=== PATIENT | female | born 1945 | race Caucasian/White ===

== ENCOUNTER 2018-02-05 14:00 | Outpatient (RCR) | payer OTHER, MEDICARE, SELFPAY ==
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
--- NOTE | 2018-02-05 14:30 | HP.PTDCSUM_ITS ---
HP - PT D/C Summary It has been my pleasure to treat RAN GIRARD under orders from Alan Lassiter, for the diagnosis of CHRONIC MIDLINE LOW BACK PAIN for a total of 10 visit (s). Discharge Date: Please see the following information for a summary of their discharge status. - Subjective Subjective: PATIENT REPORTS SHE ISN'T HAVING ANY PAIN RIGHT NOW BUT SHE HAD TO PUT HEAT ON HER RIGHT BACK/RIB CAGE AREA. SHE REPORTS THAT OVER-ALL SHE REALLY ISN'T ANY BETTER OR ANY WORSE SINCE STARTING PT. SHE REPORTS THAT SHE STILL DOES THE EX'S WE GAVE HER FOR HOME THOUGH. PATIENT REPORTS SHE PLANS TO GO TO THE DOCTOR TODAY AND ASK FOR AN X-RAY. PATIENT REPORTS THE THERAPY HAS NOT MADE HER WORSE BUT IT ISN'T HELPING. - Pain R MID-BACK Pain Intensity (Out of 10): 0 - Objective Objective/Function: PATIENT IS NOT IMPROVING. THERE IS NO SIGNIFICANT CHANGE IN SX'S SINCE INITIAL EVALUATION. - Goals Goal 1:: DECREASE C/O RIGHT BACK AND RIB PAIN Goal Progress: Not Progressing Goal 2:: IMPROVE PERSONAL CARE, LIFTING, BENDING, TWISTING, STANDING, WALKING, SITTING, RISING FROM SITTING, SLEEP, REACREATIONAL AND HOMEMAKING FUNCTION Goal Progress: Not Progressing Goal 3:: INSTRUCT IN PROPHYLAXIS Goal Progress: Not Progressing - Plan Plan: D/C DUE TO LACK OF PROGRESS. PATIENT AGREEABLE. - D/C Information If there are questions or concerns regarding this patient's physical therapy, please feel free to call me at [phone]. Thank you for the referral of this patient. Sincerely, Emilia Ku
== END 2018-02-05 15:41 | disposition home or self-care (01) ==
LOC: PT 14:00
PROVIDERS: Family Provider Family Medicine; PCP Family Medicine; Visit Provider Family Medicine
DX: M54.5 Low back pain (principal)
CPT/HCPCS: 97110; 97162; 97164; 97530; G8978

== ENCOUNTER 2018-03-08 11:03 | Emergency (ER) | payer OTHER, MEDICARE, SELFPAY ==
[2018-03-08 11:04] VITALS: BP 125/84; PULSE 63; RESP 22; TEMP 36.6; O2SAT 95; BMI 30.7
[2018-03-08] MEDS: predniSONE 20 MG Tablet 60 MG PO (11:24)
[2018-03-08 11:35] VITALS: PULSE 71; RESP 22; O2SAT 93
[2018-03-08] MEDS: Albuterol 2.5 MG/3 ML VIAL.NEB. INHALATION ×3 (11:35→11:50)
[2018-03-08] MEDS: Ipratropium/Albuterol Sulfate 3 ML AMPUL.NEB INHALATION (11:35)
[2018-03-08 11:50] VITALS: PULSE 75; RESP 22; O2SAT 95
--- NOTE | 2018-03-08 12:21 | ED.VISSUMM ---
- ER Visit Summary Date of Service: 03/08/18 Chief Complaint: Shortness of breath, nonproductive cough and wheezing History of Present Illness: The patient is a 72 F with history of COPD and recent admission to [facility] presents with nonproductive cough, shortness of breath and wheezing. She completed her short burst of prednisone. She denies fever, chills night sweats. She denies rhinorrhea, postnasal drainage or nasal congestion. Denies earache or sore throat. She denies any chest pain. She has no history of PE or DVT. She denies any leg pain, swelling or discoloration. She denies nausea, vomiting diarrhea. Physical Examination: Vital signs were noted and blood pressure is elevated 125/84 and rest rate is 22. She is not febrile nor she hypoxic. Audible wheezing noted. Head is atraumatic normocephalic. Pupils are equal round reactive. Extraocular muscles are intact. TMs are pearly white with landmarks noted. Nares patent with no drainage. Posterior pharynx without erythema or exudate. Uvula is midline. There is no dysphonia or dysphasia. Trachea is midline. There is no stridor with auscultation of the neck. Heart is regular without murmur, gallop or rub. Lungs reveal wheezing bilaterally with increased x-ray phase. There is no rales or rhonchi noted. There is no egophony or increased vocal fremitus. Abdomen is soft nontender. There is no asymmetry, swelling, discoloration, leg vein distention, palpable cords or tenderness along the distribution of the deep venous system. Neuro exam is nonfocal Test Results: Two-view chest x-ray was obtained and reveals minimal chronic changes with no evidence of infiltrate or effusion. Cardiac silhouette is normal. Lung parenchyma is normal. Emergency Department Course and Treatment: Will obtain chest x-ray to evaluate for pneumothorax and pneumonia. She received 60 mg of prednisone as well as DuoNeb and albuterol treatments. I was informed by respiratory therapist she still has wheezing. However, she is moving more air. Treatment Plan: Patient was reassessed at 1225. There is no audible wheezing. There is expiratory wheezing with forced expiration only. Will discharge with tapering dose of prednisone and follow-up with Dr. Vázquez in 1 week Disposition: Discharged home in stable condition. Impression: Acute exacerbation of COPD with bronchospasm This note was generated with Analiza dictation software. It may contain incorrect words, spelling, and punctuation that were not noted in review of the chart prior to signing ED Disposition - Plan for ED Patient: Disposition: Home or Assisted Living Chief Complaint: Shortness of Breath Instructions: ED COPD Flare Prescriptions: Prednisone 10 mg PO UD #33 tab Referrals: Alan Lassiter MD [Primary Care Provider] - 3-5 Days if not improving
[2018-03-08 12:57] VITALS: PULSE 73; RESP 18; O2SAT 92
[2018-03-08] MEDS: Ondansetron ODT 4 MG Tablet PO (12:59)
== END 2018-03-08 13:00 | disposition home or self-care (01) ==
LOC: ED 12:42
PROVIDERS: Emergency Provider Emergency Medicine; Family Provider Family Medicine; PCP Family Medicine
DX: J44.1 Chronic obstructive pulmonary disease with (acute) exacerbation (principal); I10 Essential (primary) hypertension; Z79.899 Other long term (current) drug therapy; Z79.82 Long term (current) use of aspirin; Z79.51 Long term (current) use of inhaled steroids
CPT/HCPCS: 71046; 94640; 99283

== ENCOUNTER 2018-04-03 15:18 | Emergency (ER) | payer OTHER, MEDICARE, SELFPAY ==
[2018-04-03 15:18] VITALS: BP 155/97; PULSE 58; RESP 22; TEMP 36.6; O2SAT 99; BMI 30.7
[2018-04-03 16:22] VITALS: O2SAT 96
--- NOTE | 2018-04-03 16:43 | EKG12_ITS ---
Test Reason : SOB Blood Pressure : / mmHG Vent. Rate : 049 BPM Atrial Rate : 049 BPM P-R Int : 146 ms QRS Dur : 094 ms QT Int : 500 ms P-R-T Axes : 017 -17 037 degrees QTc Int : 451 ms Sinus bradycardia with sinus arrhythmia Nonspecific ST and T wave abnormality Abnormal ECG Confirmed by TIN NGUYEN, JUDSON ([id number]), department editor MATHEW JAQUEZ ([id number]) on 04/07/2018 8:54:08 AM Referred By: KELLEE Confirmed By:JUDSON CASTLE MD
--- NOTE | 2018-04-03 16:45 | RAD_ITS ---
STUDY: X-RAY CHEST REASON FOR EXAM: Female, 73 years old. Shortness of breath for 2 to 3 days. History of COPD. TECHNIQUE: Single frontal view of the chest. COMPARISON: March 08, 2018 FINDINGS: There is stable hyperexpansion. There is no demonstrated pleural abnormality. There is borderline cardiomegaly unchanged. Normal mediastinum and cathy. Normal visualized pulmonary arteries. Normal visualized aortic arch and descending thoracic aorta. Normal visualized thoracic spine. Normal visualized ribs, clavicles, and shoulders. There is no demonstrated abnormality of the visualized soft tissue structures of the upper abdomen. RAD/Chest 1 View (Portable) IMPRESSION: Borderline cardiomegaly with hyperexpansion. No acute pathology. Electronically Signed: Tyrese Vela MD at 17:40 EDT , Service support ,
[2018-04-03 16:57] VITALS: PULSE 54; RESP 22
[2018-04-03] MEDS: Ipratropium/Albuterol Sulfate 3 ML AMPUL.NEB INHALATION (16:57)
[2018-04-03] MEDS: MethylPREDNISolone 125 MG/2 ML Vial IV (16:57)
[2018-04-03] MEDS: Albuterol 2.5 MG/3 ML VIAL.NEB. INHALATION (16:57)
[2018-04-03 17:04] LABS: Absolute Lymphocyte Count 12.16 X10^3/ul (0.83-4.51); Basophil# 0.05 X10^3/uL; Basophil% 0.3 % (0-1); Differential Indicated SCAN CRITERIA MET; Eosinophil# 0.35 X10^3/uL; Eosinophils% 1.9 % (0-5); Hemoglobin 12.4 g/dl (12.0-15.0); Lymphocyte # 12.16 X10^3/ul (4.0); Lymphocyte % 67.3 % (19-41); Mean Corpuscular Hgb 27.2 pg (27.0-32.0); Mean Corpuscular Volume 87.7 fL (81-99); Mean Platelet Vol. 10.3 fl (6.2-12.0); Monocyte# 0.44 X10^3/uL; Monocyte% 2.4 % (0-10); Neutrophil # 5.03 X10^3/uL (2.7-7.7); Neutrophil % 27.9 % (47-70); POSITIVE COUNT NO; POSITIVE DIFFERENTIAL YES; POSITIVE MORPHOLOGY YES; Platelet Count 144 K/mm3 (150-450); RBC Distribution Width CV 15.4 % (11.6-14.6); RBC Distribution Width SD 49.1 fl (35.1-43.9); Red Blood Count 4.56 M/mm3 (4.2-5.4); White Blood Count 18.1 K/mm3 (4.4-11.0)
[2018-04-03 17:20] LABS: Anion Gap 8 (5-15); BUN 17 mg/dL (7-18); BUN/Creat Ratio 23.7 RATIO (10-20); Calcium,Total 9.1 mg/dL (8.5-10.1); Chloride 109 mmol/L (98-107); Creatinine, Serum 0.72 mg/dL (0.55-1.02); EST Glomerular Filtration Rate 85 mL/min (>60); Est Glom Filt Rate - Afr Amer 102 mL/min (>60); Estimated Creatinine Clearance 45.09 ml/min; Glucose 93 mg/dL (74-106); Potassium 3.8 mmol/L (3.5-5.1); Sodium Level 142 mmol/L (136-145)
[2018-04-03 17:32] LABS: Platelet Estimate ADEQUATE (ADEQ); Red Cell Morphology NORM C+C NORMAL (NORM C&C)
--- NOTE | 2018-04-03 19:41 | ED.VISSUMM ---
- ER Visit Summary Date of Service: 04/03/18 Chief Complaint: Dyspnea History of Present Illness: The patient is a 73 F with 3 day history of gradual onset shortness of breath cough with white sputum. She has a history of COPD. She has no fever or chills. She has no chest pain. Last time she was on steroids for COPD was a month and a half ago. Physical Examination: Not appear in acute distress. Speaking in full sentences. Moist mucous membranes, no obvious facial deformity No C-spine tenderness supple neck. Regular rate and rhythm without any obvious murmurs Wheezy lungs bilaterally speaking in full sentences without any obvious respiratory distress Abdomen soft and nontender no guarding or rebound Moves all extremities without any difficulty or pain. Skin does not show any obvious rashes or lesions, no trauma. Alert oriented ?3 with no gross focal deficit Test Results: X-rays unremarkable patient does have leukocytosis, this makes me concerned for an underlying pneumonia therefore I will start the patient on antibiotics. She will get steroids, at this time she is not hypoxic she appears well she is talking in full sentences I do believe she meets criteria for outpatient treatment, however if she gets worse she needs to return both her and her are in the room and understand this. Discharge stable condition Impression: [COPD exacerbation] This note was generated with Synd[employer] dictation software. It may contain incorrect words, spelling, and punctuation that were not noted in review of the chart prior to signing ED Disposition - Plan for ED Patient: Disposition: Home or Assisted Living Chief Complaint: Shortness of Breath Instructions: ED COPD Flare Prescriptions: levoFLOXacin tablet [Levaquin tablet] 750 mg PO DAILY #5 tab Referrals: Alan Lassiter MD [Primary Care Provider] - 3-5 Days
[2018-04-03] MEDS: levoFLOXacin 750 MG Tablet PO (19:51)
[2018-04-03] MEDS: Triamcinolone Acetonide 40 MG/ML Vial IM (19:57)
[2018-04-03 20:00] VITALS: PULSE 61; RESP 19; O2SAT 95
[2018-04-05 12:45] LABS: Pathologist Review Reviewed
== END 2018-04-03 20:01 | disposition home or self-care (01) ==
PROVIDERS: Emergency Provider Emergency Medicine; Family Provider Family Medicine; PCP Family Medicine
DX: J44.1 Chronic obstructive pulmonary disease with (acute) exacerbation (principal); D72.829 Elevated white blood cell count, unspecified; I10 Essential (primary) hypertension; Z79.82 Long term (current) use of aspirin; Z79.899 Other long term (current) drug therapy; Z72.0 Tobacco use
CPT/HCPCS: 71045; 80048; 84484; 85025; 93005; 94640; 96372; 96374; 99285; A4216

== ENCOUNTER 2019-01-27 13:23 | Observation (INO) | payer OTHER, MEDICARE, SELFPAY ==
[2019-01-27] VITALS (8 sets, daily range): BP systolic 130–170; BP diastolic 67–97; PULSE 49–59; RESP 14–21; TEMP 36.4–36.8; O2SAT 95–97; BMI 30.7; BMI 30.8; BMI 31.6
--- NOTE | 2019-01-27 13:28 | RAD_ITS ---
STUDY: X-RAY CHEST REASON FOR EXAM: Female, 73 years old. One week history of chest pain. TECHNIQUE: Single AP portable view of the chest. COMPARISON: Comparison is made with prior study dated April 03, 2018. FINDINGS: The lungs are clear and expanded. There is no demonstrated pleural abnormality. There is mild cardiac enlargement. Normal mediastinum and cathy. Normal visualized pulmonary arteries. There is atherosclerotic calcification of the aortic arch with tortuosity. Normal visualized thoracic spine. Normal visualized ribs, clavicles, and shoulders. There is no demonstrated abnormality of the visualized soft tissue structures of the upper abdomen. RAD/Chest 1 View (Portable) IMPRESSION: Mild cardiomegaly. No acute abnormality is seen. Electronically Signed: Artie Roberts, at 13:51 EDT , Service support ,
--- NOTE | 2019-01-27 13:28 | EKG12_ITS ---
Test Reason : CP Blood Pressure : / mmHG Vent. Rate : 055 BPM Atrial Rate : 055 BPM P-R Int : 176 ms QRS Dur : 092 ms QT Int : 476 ms P-R-T Axes : 031 -17 051 degrees QTc Int : 455 ms Sinus bradycardia Otherwise normal ECG Confirmed by TIN NGUYEN, JUDSON ([id number]), greeting card editor LUIS GUPTA ([id number]) on 01/31/2019 12:54:14 PM Referred By: Darrell Lerner Confirmed By:JUDSON CASTLE MD
[2019-01-27 13:43] LABS: Absolute Lymphocyte Count 8.52 X10^3/uL (0.83-4.51); Basophil# 0.06 X10^3/uL; Basophil% 0.4 % (0-1); Eosinophil# 0.18 X10^3/uL; Eosinophils% 1.3 % (0-5); Hematocrit 40.1 % (37-47); Hemoglobin 12.5 g/dL (12.0-15.0); Lymphocyte # 8.52 X10^3/ul (4.0); Lymphocyte % 63.1 % (19-41); Mean Corp Hgb Conc 31.2 g/dL (32-36); Mean Corpuscular Hgb 26.8 pg (27.0-32.0); Mean Corpuscular Volume 86.1 fL (81-99); Mean Platelet Vol. 11.1 fl (6.2-12.0); Monocyte# 1.18 X10^3/uL; Monocyte% 8.7 % (0-10); NRBC Flagged by Analyzer 0 % (0-5); Neutrophil # 3.54 X10^3/uL (2.7-7.7); Neutrophil % 26.3 % (47-70); POSITIVE DIFFERENTIAL YES; POSITIVE MORPHOLOGY YES; Platelet Count 119 K/mm3 (150-450); RBC Distribution Width CV 15.3 % (11.6-14.6); RBC Distribution Width SD 48.1 fl (35.1-43.9); Red Blood Count 4.66 M/mm3 (4.2-5.4); White Blood Count 13.5 K/mm3 (4.4-11.0)
[2019-01-27] MEDS: Aspirin 81 MG TAB.CHEW 324 MG PO (13:47)
[2019-01-27 13:51] LABS: Differential Indicated SCAN CRITERIA MET
[2019-01-27 14:01] LABS: Anion Gap 9 (5-15); BUN 15 mg/dL (7-18); BUN/Creat Ratio 17.3 RATIO (10-20); Calcium,Total 9.5 mg/dL (8.5-10.1); Chloride 110 mmol/L (98-107); Creatinine, Serum 0.86 mg/dL (0.55-1.02); EST Glomerular Filtration Rate 68 mL/min (>60); Est Glom Filt Rate - Afr Amer 82 mL/min (>60); Estimated Creatinine Clearance 52.42 ml/min; Glucose 134 mg/dL (74-106); Potassium 3.9 mmol/L (3.5-5.1); Sodium Level 146 mmol/L (136-145)
[2019-01-27 14:24] LABS: Differential Comment SCANNED; Platelet Estimate MOD DEC (ADEQ); Smudge Cells RARE
--- NOTE | 2019-01-27 15:19 | ED.VISSUMM ---
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 She reports that she has intermittent chest pain for the past week. This is a pressure that radiates up into the right side of her jaw. She reports that it is brought on by exertion, but only lasts seconds and is relieved by rest. Her pain is 4 out of 10 at worst and she is pain-free currently. She does report that she is diaphoretic and short of breath and with this. Patient does report recent travel. They drove to [place] approximately 1 week ago. However, she reports they stopped approximately every 2 hours. She has no personal family history of DVT. She denies ankle swelling or calf pain. Patient has a family history, high blood pressure, high cholesterol, and diabetes as her risk factors. She has never had a heart catheterization. She had a stress test a long time ago. Physical Examination: Vitals: Stable. Afebrile. General: Well-nourished and well-developed. Head: Normocephalic atraumatic. Neck: Supple, no lymphadenopathy. No JVD. Nontender. Cardiovascular: Regular rate and rhythm. No murmurs. Respiratory: No respiratory distress. Clear to auscultation bilaterally. Abdominal: Soft, nontender, nondistended, normal bowel sounds. No guarding, rebound, or peritoneal signs. Back: Nontender. Extremities: Nontender, no edema. Skin: Normal color, no rash. Neurologic: Alert and oriented ?3. Cranial nerves II through XII are intact. Normal strength and sensation. Psych: Normal affect. Test Results: EKG sinus bradycardia [address] changes. Troponin is negative. Chem-7 shows a sodium 146, chloride 110, glucose 134. CBC shows white count 13.5, platelets 119, 7 neutrophils 26, lymphs at the 63. Chest x-ray shows mild cardiomegaly and no acute disease. Emergency Department Course and Treatment: Patient was treated with aspirin. She is remained pain-free while here. Treatment Plan: The patient was discussed with Dr. Lerner. She will be admitted to the hospital for further evaluation and treatment. Disposition: Admitted in stable condition. Impression: 1. Chest pain. 2. CARLOS A score 3. This note was generated with Engage Mob[employer] software. It may contain incorrect words, spelling, and punctuation that were not noted in review of the chart prior to signing ED Disposition - Plan for ED Patient: Referrals: Alan Lassiter MD [Primary Care Provider] -
--- NOTE | 2019-01-27 16:06 | NURSING ---
PCU OBS JAKE CONCEPC[facility]
--- NOTE | 2019-01-27 16:38 | PCM.HP.STD ---
Problem List (1) Atypical chest pain Status: Acute (2) COPD (chronic obstructive pulmonary disease) Status: Chronic (3) Pneumonia Status: Resolved (4) SOB (shortness of breath) Status: Acute (5) HLD (hyperlipidemia) Status: Chronic (6) HTN (hypertension) Status: Chronic History of Present Illness Date of Admission: 01/27/19 Chief Complaint: Chest pain for 1 week The patient is a 73 year old F with history of hypertension, dyslipidemia came to ER for chest pain on and off for 1 week. She gets chest pain on exertion and relieved with rest but also has even at rest. Sometimes, it radiates to right neck. She does not have associated shortness of breath with chest pain, dizziness, sweating although she has mild chronic shortness of breath secondary to COPD. In ED, EKG shows sinus bradycardia at 55 bpm. She denies history of coronary artery disease but never had heart cath. She had a stress as long time ago. [] Past Medical History Past Medical History (Chronic Problems): Chronic Problems HTN (hypertension) (Chronic) COPD (chronic obstructive pulmonary disease) (Chronic) HLD (hyperlipidemia) (Chronic) Allergies No Known Allergies Allergy (Verified 01/27/19 13:27) Home Medications: Ambulatory Orders Medication Instructions Recorded Aspirin [Aspirin, Baby] 81 mg PO DAILY@0800 07/15/15 Gabapentin [Neurontin] 300 mg PO BID 07/15/15 Omeprazole [Prilosec] 20 mg PO DAILY PRN PRN 07/15/15 Polyethylene Glycol 3350 [Miralax] 17 gm PO DAILY 07/15/15 traZODone [Desyrel] 50 mg PO QHS 07/15/15 Acetaminophen [Tylenol Extra 1,000 mg PO DAILY PRN PRN 01/27/19 Strength] Budesonide/Formoterol 160/4.5 2 puff INHALATION DAILY PRN PRN 01/27/19 [Symbicort 160/4.5 Mcg Inhaler (SP)] Metoprolol Succinate [Toprol Xl] 100 mg PO DAILY 01/27/19 Tiotropium [place] [Spiriva 2 puff INHALATION DAILY 01/27/19 Respimat] Surgical History: appendectomy, hysterectomy, - Smoking Status: Never smoker - *Family History Paternal History Items: Heart Disease - Heart disease diagnosed in late 70s., - - unspecified heart problems, diabetes in father Review of Systems Constitutional: Denies: Chills, Fever, Weight Change HEENT: Denies: Head Aches, Sinus Congestion, Sinus Drainage Cardiovascular: Reports: Chest Pain. Denies: Palpitations Respiratory: Reports: Shortness of Breath. Denies: Cough, Shortness of breath at rest, Sputum production Gastrointestinal: Denies: Abdominal Pain, Nausea, Vomiting Genitourinary: Denies: Dysuria Musculoskeletal: Reports: Joint Pain. Denies: Joint Tenderness Skin: Denies: Rash, Wounds Neurological: Denies: Numbness, Tingling, Focal weakness Psychiatric: Denies: Anxiety, Depression, Homicidal Ideations, Suicidal Ideations Hematologic/ Lymphatic: Denies: Easy Bruising, Easy Bleeding VTE Information - Inpt Only VTE Present on Admission: No VTE Mechan Device Prophylaxis: None VTE Pharm Prophylaxis ordered?: Yes Patient Problems: Active and Suspected Problems Atypical chest pain (Acute) - Physical Exam General: Alert, Oriented x3, Cooperative HEENT: Atraumatic, PERRLA, EOMI, Normocephalic Neck: Supple, No JVD, Negative Carotid Bruits Lungs: Clear to auscultation, Normal air movement, No rhonchi, No wheeze, No rales Cardiovascular: Regular Rhythm, Normal S1, Normal S2, No murmurs, Bradycardic Abdomen: Bowel Sounds Present, Soft, Non Tender, Non-Distended Extremities: Capillary Refill Less than 3 Seconds, Edema - Mild ankle edema Skin: No rashes, No breakdown Musculoskeletal: No Tenderness to Palpation of Joints or Extremities, Arthritic Changes Neurological: Cranial nerves II-XII grossly intact, Deep Tendon Reflexes 2+/4 and Symmetrical, Neuro grossly intact, Motor Exam 5/5 strength throughout Psych/Mental Status: Normal Affect, Appropriate Vital Signs Temp Pulse Resp BP Pulse Ox 97.6 F L 55 L 21 H 157/67 H 96 01/27/19 13:24 01/27/19 16:33 01/27/19 16:33 01/27/19 16:33 01/27/19 16:33 Oxygen Flow Rate (L/min) 2 Oxygen Delivery Method Room Air Weight: 185 lb Body Mass Index (BMI) 30.7 Finger Stick Blood Glucose 128 Laboratory Tests Past 24 Hrs 01/27/19 01/27/19 13:30 13:30 WBC 13.5 H RBC 4.66 Hgb 12.5 Hct 40.1 MCV 86.1 MCH 26.8 L MCHC 31.2 L RDW Std Deviation 48.1 H RDW Coeff of Ana 15.3 H Plt Count 119 L MPV 11.1 Immature Gran % (Auto) 0.200 Neut % (Auto) 26.3 L Lymph % (Auto) 63.1 H [place] % (Auto) 8.7 Eos % (Auto) 1.3 Baso % (Auto) 0.4 Absolute Neuts (auto) Not Reportable Absolute Lymphs (auto) 8.52 H Absolute Nucleated RBC 0.00 Nucleated RBC % 0 Differential Comment SCANNED Diff Path Review May foll Smudge Cells RARE Platelet Estimate MOD DEC Sodium 146 H Potassium 3.9 Chloride 110 H Carbon Dioxide 27.0 Anion Gap 9 BUN 15 Creatinine 0.86 Estim Creat Clear Calc 52.42 Est GFR (MDRD) Af Amer 82 Est GFR (MDRD) Non-Af 68 BUN/Creatinine Ratio 17.3 Glucose 134 H Calcium 9.5 Troponin I < 0.015 Assessment/Plan All Active Problems Atypical chest pain (Acute) SOB (shortness of breath) (Acute) Pneumonia (Resolved) The patient is a 73 year old F with history of hypertension, dyslipidemia came to ER for chest pain on and off for 1 week. She gets chest pain on exertion and relieved with rest but also has even at rest. Sometimes, it radiates to right neck. She does not have associated shortness of breath with chest pain, dizziness, sweating although she has mild chronic shortness of breath secondary to COPD. In ED, EKG shows sinus bradycardia at 55 bpm. There is nonspecific ST-T changes suggestive of ischemia. She denies history of coronary artery disease but never had heart cath. She had a stress as long time ago. [] 1. Chest pain with possibility of unstable angina: The patient is being admitted in PCU. Serial troponin enzymes. Patient is okay with treadmill nuclear stress test tomorrow morning if troponin enzymes are negative. CARLOS A risk score; 4/7. 2. Hypertension: Blood pressure is slightly elevated 157/67. Started on lisinopril 5 mg daily. 3. Elevated blood sugar: Blood sugar is 134 in BMP. A1c ordered for tomorrow a.m. Patient denies history of diabetes mellitus. 4. Other comorbidities include dyslipidemia, COPD: Fasting lipid profile ordered for tomorrow a.m. Continue home inhalers for COPD. COPD stable; no exacerbation. DVT prophylaxis: On Lovenox 40 mg subcut daily. This note was generated with [employer] dictation software. Every effort was made to ensure accuracy, however computerized electronic prepress operator mistakes may persist. Laboratory Results 01/27/19 13:30: WBC 13.5 H, RBC 4.66, Hgb 12.5, Hct 40.1, MCV 86.1, MCH 26.8 L, MCHC 31.2 L, RDW Std Deviation 48.1 H, RDW Coeff of Ana 15.3 H, Plt Count 119 L, MPV 11.1, Immature Gran % (Auto) 0.200, Neut % (Auto) 26.3 L, Lymph % (Auto) 63.1 H, [place] % (Auto) 8.7, Eos % (Auto) 1.3, Baso % (Auto) 0.4, Absolute Neuts (auto) Not Reportable, Absolute Lymphs (auto) 8.52 H, Absolute Nucleated RBC 0.00, Nucleated RBC % 0, Differential Comment SCANNED, Diff Path Review May foll, Smudge Cells RARE, Platelet Estimate MOD DEC 01/27/19 13:30: Sodium 146 H, Potassium 3.9, Chloride 110 H, Carbon Dioxide 27.0, Anion Gap 9, BUN 15, Creatinine 0.86, Estim Creat Clear Calc 52.42, Est GFR (MDRD) Af Amer 82, Est GFR (MDRD) Non-Af 68, BUN/Creatinine Ratio 17.3, Glucose 134 H, Calcium 9.5, Troponin I < 0.015 Clinical Impression(s) from Imaging Studies Chest X-Ray 01/27/19 13:28 IMPRESSION: Mild cardiomegaly. No acute abnormality is seen. Code Visit OBSV E&M: 63106 Initial observation care L3
--- NOTE | 2019-01-27 16:40 | EKG12_ITS ---
Test Reason : ADMISSION EKG Blood Pressure : / mmHG Vent. Rate : 049 BPM Atrial Rate : 049 BPM P-R Int : 160 ms QRS Dur : 090 ms QT Int : 484 ms P-R-T Axes : 034 -08 046 degrees QTc Int : 437 ms Sinus bradycardia Otherwise normal ECG When compared with ECG of 03-APR-2018 17:14, No significant change was found Confirmed by TIN NGUYEN, JUDSON ([id number]), editor greeting card LUIS GUPTA ([id number]) on 02/01/2019 2:01:32 PM Referred By: Darrell Lerner Confirmed By:JUDSON CASTLE MD
[2019-01-27] MEDS: Lisinopril 5 MG Tablet PO (17:34)
[2019-01-27] MEDS: Enoxaparin 40 MG/0.4 ML Syringe SC (17:34)
[2019-01-27] MEDS: Pantoprazole Sodium 20 MG Tablet PO (20:52)
[2019-01-27] MEDS: Atorvastatin Calcium 40 MG Tablet PO (21:45)
[2019-01-27] MEDS: traZODone 50 MG Tablet PO (21:45)
[2019-01-28] VITALS (8 sets, daily range): BP systolic 97–125; BP diastolic 49–70; PULSE 47–73; RESP 16–26; TEMP 36.4–36.7; O2SAT 93–97
[2019-01-28] MEDS: Aspirin 81 MG TAB.CHEW PO (05:11)
[2019-01-28] MEDS: Gabapentin 300 MG Capsule PO (05:12)
[2019-01-28 05:15] LABS: Hematocrit 36.5 % (37-47); Hemoglobin 11.3 g/dL (12.0-15.0); Mean Corpuscular Hgb 26.7 pg (27.0-32.0); Mean Corpuscular Volume 86.3 fL (81-99); Platelet Count 106 K/mm3 (150-450); Red Blood Count 4.23 M/mm3 (4.2-5.4); White Blood Count 10.5 K/mm3 (4.4-11.0)
[2019-01-28 05:39] LABS: Cholesterol 131 mg/dL (200); High Density Lipoprotein 30 mg/dL; Thyroid Stim Hormone (TSH) 1.64 uIU/mL (0.358-3.74); Triglycerides 326 mg/dL; Very Low Density Lipoprotein 65 mg/dL (5-40)
--- NOTE | 2019-01-28 05:55 | EKG12_ITS ---
Test Reason : AM EKG Blood Pressure : / mmHG Vent. Rate : 048 BPM Atrial Rate : 048 BPM P-R Int : 160 ms QRS Dur : 080 ms QT Int : 504 ms P-R-T Axes : 017 -11 035 degrees QTc Int : 450 ms Sinus bradycardia Otherwise normal ECG When compared with ECG of 27-JAN-2019 17:05, MANUAL COMPARISON REQUIRED, DATA IS UNCONFIRMED Confirmed by TIN NGUYEN, JUDSON ([id number]), editor sound LUIS GUPTA ([id number]) on 02/01/2019 2:00:57 PM Referred By: Darrell Lerner Confirmed By:JUDSON CASTLE MD
[2019-01-28 07:09] LABS: Hemoglobin A1c 6.3 % (4.2-6.3)
[2019-01-28] MEDS: Ipratropium/Albuterol Sulfate 3 ML AMPUL.NEB INHALATION ×2 (07:52→12:45)
[2019-01-28 09:39] LABS: Pathologist Review Reviewed
[2019-01-28] MEDS: Lisinopril 5 MG Tablet PO (09:45)
[2019-01-28] MEDS: Metoprolol(XL)Succ 50 MG Tablet PO (09:45)
[2019-01-28] MEDS: Polyethylene Glycol 3350 17 GM PACKET PO (09:45)
--- NOTE | 2019-01-28 11:33 | STRESSREP ---
Stress Test Report Pharmacologic myocardial perfusion stress test. 73-year-old lady with a history of chest pain. Next Stress protocol: Resting EKG demonstrates normal sinus rhythm with a rate of 51 bpm normal intervals are noted resting blood pressure 160/80 mmHg. The patient exercised according to regular [place] protocol for total duration of 4 minutes and 48 seconds maximum heart rate attained 114 bpm which was 77% maximum predicted heart rate the maximum workload was 6.7 metabolic equivalents. The patient failed to obtain maximum heart rate and therefore the test was changed to a pharmacologic myocardial perfusion stress test. Nonspecific ST-T wave changes were noted at rest and with peak infusion. The resting blood pressures 150/80 with a final blood pressure 132/70 mmHg Myocardial perfusion protocol. 1.9 mCi of technetium 99m sestamibi was injected at rest. 0.4 mg of regadenoson was infused per usual protocol peak infusion 33.6 mCi of technetium 99m sestamibi was injected stress images were obtained stress and rest images are reconstructed in comparing the short axis vertical and horizontal long axis. Gated images was obtained PACS Perfusion SPECT analysis: Review of the stress images demonstrate significant GI attenuation artifact. The septum anterior wall lateral wall however appeared to be normally perfused. The inferior wall has reduced perfusion on the stress and resting images no obvious reversibility is noted to suggest ischemia. The attenuation corrected images demonstrate normal perfusion. Gated SPECT analysis: The gated ejection fraction is noted to be 74%. Conclusion: Probably normal pharmacologic myocardial perfusion stress test. Preserved ejection fraction.
--- NOTE | 2019-01-28 11:46 | DCINST_ITS ---
- Discharge Diagnoses Current Active Problems: Current Active and Chronic Problems Atypical chest pain (Acute) You will use the following diet at home:: Cardiac Discharge Activity: Return to Normal Activity Call your doctor if you observe: Shortness of breath, Dizziness, Fainting spells, Chest pain Instructions: Eating Heart-Healthy Foods, Eating Heart-Healthy Food: Using the DASH Plan Allergies/Adverse Reactions: Allergies No Known Allergies Allergy (Verified 01/27/19 13:27) Medications to take at Discharge Aspirin [Aspirin, Baby] 81 mg PO DAILY@0800 07/15/15 Gabapentin [Neurontin] 300 mg PO BID 07/15/15 Omeprazole [Prilosec] 20 mg PO DAILY PRN PRN 07/15/15 Polyethylene Glycol 3350 [Miralax] 17 gm PO DAILY 07/15/15 traZODone [Desyrel] 50 mg PO QHS 07/15/15 Acetaminophen [Tylenol] 1,000 mg PO DAILY PRN PRN 01/27/19 Budesonide/Formoterol 160/4.5 [Symbicort 160/4.5 Mcg Inhaler (SP)] 2 puff INHALATION DAILY PRN PRN 01/27/19 Metoprolol Succinate [Toprol Xl] 100 mg PO DAILY 01/27/19 Tiotropium [place] [Spiriva Respimat] 2 puff INHALATION DAILY 01/27/19 Aspirin [Aspirin, Baby] 81 mg PO DAILY@0800 #30 tab.chew 01/28/19 Atorvastatin Calcium [Lipitor] 40 mg PO QHS #30 tab 01/28/19 The following prescriptions were given: Aspirin [Aspirin, Baby] 81 mg PO DAILY@0800 #30 tab.chew Transmission Status: Pending to [facility] #69 Atorvastatin Calcium [Lipitor] 40 mg PO QHS #30 tab Transmission Status: Pending to [facility] #69 Primary Care Physician: Alan Lassiter MD [Primary Care Provider] - Please follow up with your Primary Care Physician in: 1 Week Test Results: Test results from this visit will be discussed in further detail at your follow- up appointment, if applicable. Please Follow Up With: Drew Sotelo DO When: Call for appt to establish with pulmonary medicine Proposed Discharge Date: 01/28/19
--- NOTE | 2019-01-28 12:25 | PCM.DC.SUM ---
Discharge Date and Diagnosis Date of Admission: 01/27/19 Date of Discharge: 01/28/19 - Primary Discharge Diagnosis Active and Suspected Problems 1. Chest pain, ACS ruled out 2. Hypertension 3. Hyperlipidemia 4. Chronic COPD/asthma 5. GERD - Secondary Discharge Diagnosis Chronic Problems HTN (hypertension) (Chronic) COPD (chronic obstructive pulmonary disease) (Chronic) HLD (hyperlipidemia) (Chronic) Hospital Course and Treatment Imaging Results: Diagnostic Data Chest X-Ray 01/27/19 13:28 IMPRESSION: Mild cardiomegaly. No acute abnormality is seen. Electronically Signed: Artie Roberts, at 13:51 EDT , Service support , Operations: None Procedures: Stress test Summary of Care Provided: The patient is a 73 year old F admitted 01/27/2019 due to chest pain. 1. Chest pain, ACS ruled out-troponin negative. EKG without ST-T changes. Patient underwent nuclear stress test which was negative for ischemia. Suspect chest pain musculoskeletal nature. Follow-up with primary care provider 1 week. 2. Hypertension-stable, continue home metoprolol regimen. Mildly elevated during admission 3. Hyperlipidemia-initiated on atorvastatin 40 mg p.o. nightly. Further follow-up with primary care provider. 4. Chronic COPD/asthma-frequently uses as needed rescue inhaler. Referred to pulmonary medicine, Dr. Sotelo to establish/further evaluation. 5. GERD-continue home omeprazole regimen. Patient seen and examined prior to discharge. Physical assessment as noted below. Patient is stable for discharge with follow up recommendations as noted above. This patient was seen by CHAITANYA Calvillo under the supervision of Dr. Rodriguez. - Physical Exam General: Alert, Oriented x3, Cooperative HEENT: Atraumatic, PERRLA, EOMI, Normocephalic Neck: Supple, No JVD, Negative Carotid Bruits Lungs: Clear to auscultation, Normal air movement Cardiovascular: Regular rate, Regular Rhythm, Normal S1, Normal S2, No murmurs Abdomen: Bowel Sounds Present, Soft, Non Tender, Non-Distended Extremities: No clubbing, No cyanosis, No edema, Capillary Refill Less than 3 Seconds Skin: No rashes, No breakdown Musculoskeletal: No Tenderness to Palpation of Joints or Extremities Neurological: Cranial nerves II-XII grossly intact, Neuro grossly intact Psych/Mental Status: Normal Affect, Appropriate Vital Signs Temp Pulse Resp BP Pulse Ox 97.5 F L 64 18 125/59 H 97 01/28/19 09:16 01/28/19 09:45 01/28/19 09:16 01/28/19 09:16 01/28/19 09:16 Oxygen Flow Rate (L/min) 2 Oxygen Delivery Method Room Air Weight: 189 lb 13.088 oz Body Mass Index (BMI) 31.6 Finger Stick Blood Glucose 128 Intake and Output for Last 24 Hours 01/26/19 01/27/19 01/28/19 23:59 23:59 23:59 Intake Total 60 / 180 620 / 620 Balance 60 / 180 620 / 620 Laboratory Tests Past 24 Hrs 01/27/19 01/27/19 01/27/19 13:30 13:30 17:50 WBC 13.5 H RBC 4.66 Hgb 12.5 Hct 40.1 MCV 86.1 MCH 26.8 L MCHC 31.2 L RDW Std Deviation 48.1 H RDW Coeff of Ana 15.3 H Plt Count 119 L MPV 11.1 Immature Gran % (Auto) 0.200 Neut % (Auto) 26.3 L Lymph % (Auto) 63.1 H [place] % (Auto) 8.7 Eos % (Auto) 1.3 Baso % (Auto) 0.4 Absolute Neuts (auto) Not Reportable Absolute Lymphs (auto) 8.52 H Absolute Nucleated RBC 0.00 Nucleated RBC % 0 Differential Comment SCANNED Diff Path Review Reviewed Smudge Cells RARE Platelet Estimate MOD DEC Sodium 146 H Potassium 3.9 Chloride 110 H Carbon Dioxide 27.0 Anion Gap 9 BUN 15 Creatinine 0.86 Estim Creat Clear Calc 52.42 Est GFR (MDRD) Af Amer 82 Est GFR (MDRD) Non-Af 68 BUN/Creatinine Ratio 17.3 Glucose 134 H Hemoglobin A1c Calcium 9.5 Troponin I < 0.015 < 0.015 Triglycerides Cholesterol LDL Cholesterol VLDL Cholesterol HDL Cholesterol TSH 01/27/19 01/28/19 01/28/19 20:40 05:05 05:05 WBC 10.5 RBC 4.23 Hgb 11.3 L Hct 36.5 L MCV 86.3 MCH 26.7 L MCHC 31.0 L RDW Std Deviation 47.0 H RDW Coeff of Ana 15.0 H Plt Count 106 L MPV 11.0 Immature Gran % (Auto) Neut % (Auto) Lymph % (Auto) [place] % (Auto) Eos % (Auto) Baso % (Auto) Absolute Neuts (auto) Absolute Lymphs (auto) Absolute Nucleated RBC Nucleated RBC % Differential Comment Diff Path Review Smudge Cells Platelet Estimate Sodium Potassium Chloride Carbon Dioxide Anion Gap BUN Creatinine Estim Creat Clear Calc Est GFR (MDRD) Af Amer Est GFR (MDRD) Non-Af BUN/Creatinine Ratio Glucose Hemoglobin A1c Calcium Troponin I < 0.015 Triglycerides 326 H Cholesterol 131 LDL Cholesterol 36 VLDL Cholesterol 65 H HDL Cholesterol 30 L TSH 1.64 01/28/19 05:05 WBC RBC Hgb Hct MCV MCH MCHC RDW Std Deviation RDW Coeff of Ana Plt Count MPV Immature Gran % (Auto) Neut % (Auto) Lymph % (Auto) [place] % (Auto) Eos % (Auto) Baso % (Auto) Absolute Neuts (auto) Absolute Lymphs (auto) Absolute Nucleated RBC Nucleated RBC % Differential Comment Diff Path Review Smudge Cells Platelet Estimate Sodium Potassium Chloride Carbon Dioxide Anion Gap BUN Creatinine Estim Creat Clear Calc Est GFR (MDRD) Af Amer Est GFR (MDRD) Non-Af BUN/Creatinine Ratio Glucose Hemoglobin A1c 6.3 Calcium Troponin I Triglycerides Cholesterol LDL Cholesterol VLDL Cholesterol HDL Cholesterol TSH Discharge Diet: Low fat/ Low Cholesterol Discharge Activity: Return to Normal Activity Call your doctor if you observe: Shortness of breath, Dizziness, Fainting spells, Chest pain Home Medications: Medications to take at Discharge Aspirin [Aspirin, Baby] 81 mg PO DAILY@0800 07/15/15 Gabapentin [Neurontin] 300 mg PO BID 07/15/15 Omeprazole [Prilosec] 20 mg PO DAILY PRN PRN 07/15/15 Polyethylene Glycol 3350 [Miralax] 17 gm PO DAILY 07/15/15 traZODone [Desyrel] 50 mg PO QHS 07/15/15 Acetaminophen [Tylenol] 1,000 mg PO DAILY PRN PRN 01/27/19 Budesonide/Formoterol 160/4.5 [Symbicort 160/4.5 Mcg Inhaler (SP)] 2 puff INHALATION DAILY PRN PRN 01/27/19 Metoprolol Succinate [Toprol Xl] 100 mg PO DAILY 01/27/19 Tiotropium [place] [Spiriva Respimat] 2 puff INHALATION DAILY 01/27/19 Aspirin [Aspirin, Baby] 81 mg PO DAILY@0800 #30 tab.chew 01/28/19 Atorvastatin Calcium [Lipitor] 40 mg PO QHS #30 tab 01/28/19 Following Prescrptions Were Given to Patient: Aspirin [Aspirin, Baby] 81 mg PO DAILY@0800 #30 tab.chew Transmission Status: Received by [facility] #69 Atorvastatin Calcium [Lipitor] 40 mg PO QHS #30 tab Transmission Status: Received by [facility] #69 Primary Care Physician: Alan Lassiter MD [Primary Care Provider] - Please follow up with your Primary Care Physician in: 1 Week Please Follow Up With: Drew Sotelo DO When: Call for appt to establish with pulmonary medicine Patient Instructions: Eating Heart-Healthy Food: Using the DASH Plan, Eating Heart-Healthy Foods Disposition: Home Minutes spent on discharge:: 35 Patient Condition:: Stable Medical Necessity - Tobacco Use Smoking Status: Never smoker Meaningful Use Info Meaningful Use Diagnoses (Choose all that apply): None applicable
== END 2019-01-28 11:47 | disposition home or self-care (01) ==
LOC: ED 16:03 → PCU 17:27
PROVIDERS: Admitting Provider Internal Medicine; Emergency Provider Emergency Medicine; Family Provider Family Medicine; PCP Family Medicine; Referring Provider Internal Medicine; Visit Provider Family Medicine
DX: R07.89 Other chest pain (principal); R06.02 Shortness of breath; R00.1 Bradycardia, unspecified; J44.9 Chronic obstructive pulmonary disease, unspecified; E78.5 Hyperlipidemia, unspecified; I10 Essential (primary) hypertension; Z79.899 Other long term (current) drug therapy; Z79.82 Long term (current) use of aspirin; Z79.51 Long term (current) use of inhaled steroids; R73.9 Hyperglycemia, unspecified; K21.9 Gastro-esophageal reflux disease without esophagitis; E66.9 Obesity, unspecified; Z68.31 Body mass index [BMI] 31.0-31.9, adult; Z71.3 Dietary counseling and surveillance
CPT/HCPCS: 36415; 71045; 78452; 80048; 80061; 83036; 84443; 84484; 85025; 85027; 93005; 93017; 94640; 96372; 99218; 99285; A9500; A4216; G0378; J2785

== ENCOUNTER 2019-06-17 10:42 | Emergency (ER) | payer MEDICARE, MEDICAID, SELFPAY ==
[2019-01-27 17:10] VITALS: BMI 31.6
[2019-06-17 10:42] VITALS: BP 173/97; PULSE 63; RESP 17; TEMP 36.7; O2SAT 97; BMI 31.1
--- NOTE | 2019-06-17 11:08 | CT_ITS ---
STUDY: CT BRAIN WITHOUT CONTRAST REASON FOR EXAM: Female, 74 years old. History of fall. RADIATION DOSAGE (If Supplied By Facility): CTDIvol = ( 44.99 ) mGy, DLP = ( 829.85 ) mGycm TECHNIQUE: Transaxial CT imaging of the brain was performed without administration of intravenous contrast material. Individualized dose optimization techniques were used for this CT. COMPARISON: No relevant priors. FINDINGS: Normal soft tissue structures. Normal calvarium. Normal size ventricles and extra-axial spaces for the patient''s age. Normal white matter tracts of the cerebral hemispheres. Normal basal ganglia and thalami. Normal brainstem. Normal cerebellum. There is no intracranial hemorrhage. There are no findings of an acute ischemic infarction. Normal visualized paranasal sinuses. CT/Brain/Head without Contrast IMPRESSION: Normal unenhanced CT scan of the brain. Electronically Signed: Artie Roberts, at 11:44 EST , Service support ,
--- NOTE | 2019-06-17 11:08 | RAD_ITS ---
STUDY: X-RAY - LEFT WRIST REASON FOR EXAM: Female, 74 years old. Fall, wrist pain. TECHNIQUE: 3 view(s) of the wrist were obtained. COMPARISON: None. FINDINGS: Normal visualized distal radius and ulna. Normal radiocarpal articulation. Normal distal radioulnar articulation. Normal carpal bones. Normal carpal articulations. Normal carpometacarpal articulation of the thumb. Normal second through fifth carpometacarpal articulations. Normal visualized metacarpal bones. The soft tissue structures are unremarkable. RAD/Wrist min 3 Views IMPRESSION: Normal x-ray examination of the wrist. Electronically Signed: Amari Washington MD at 12:17 EST Tel , Service support ,
--- NOTE | 2019-06-17 11:25 | RAD_ITS ---
STUDY: X-RAY - BILATERAL RIBS WITH CHEST REASON FOR EXAM: Female, 74 years old. Fall, chest pain, rib pain. TECHNIQUE - RIBS: 4 view(s) of the ribs. TECHNIQUE - CHEST: Single PA view of the chest. COMPARISON: 01/27/2019 FINDINGS - RIBS : Normal visualized ribs without a demonstrated fracture. FINDINGS - CHEST: The lungs are clear and expanded. There is no demonstrated pleural abnormality. Normal size heart. Normal mediastinum and cathy. Normal visualized pulmonary arteries. Normal visualized aortic arch and descending thoracic aorta. Normal visualized thoracic spine. Normal visualized ribs, clavicles, and shoulders. There is no demonstrated abnormality of the visualized soft tissue structures of the upper abdomen. RAD/Ribs [place] Min 4V w/PA Chest IMPRESSION: RIBS: Normal x-ray examination of the bilateral ribs. CHEST: Normal x-ray examination of the chest. Electronically Signed: Amari Washington MD at 12:20 EST Tel , Service support ,
--- NOTE | 2019-06-17 12:36 | ED.DCSUM_ITS ---
- ER Visit Summary Date of Service: 06/17/19 Chief Complaint: Fall [] History of Present Illness: The patient is a 74 F [presents the emergency department with complaint of a fall that occurred this morning while trying to cross the street. Patient did hit her head and bent her glasses but no loss of consciousness. She complains of pain to the left chest wall as well as the left wrist. She has abrasions to both knees but has been ambulatory and drove herself to the ER today. She denies any neck pain. She denies shortness of breath. She denies abdominal pain. Patient has history of diabetes, hypertension, high cholesterol.] Physical Examination: [HEENT-PERRLA, EOMI. Cranial nerves II through XII grossly intact. TMs clear. Mucous membranes moist. No adenopathy. No external evidence of trauma to her head. She has no C-spine tenderness on palpation. Cardiovascular-regular rate and rhythm without murmur or ectopy Lungs-clear to auscultation, chest wall stable without crepitus or subcu emphysema. Chest tenderness palpation over the left anterior chest wall below the left breast and in the midaxillary line. Abdomen-normoactive bowel sounds, soft, nontender, no rebound or rigidity, no peritoneal signs. Extremities-intact ?4, normal range of motion, normal pulses. Patient has abrasion to the lateral aspect of the left palm over the fifth meta carpal. He has no real tenderness over the hand. Patient does have tenderness over the distal radius and ulna. No significant soft tissue swelling noted. Good range of motion. Evaluation of the knees reveals bilateral superficial abrasions with no tenderness over the patella or bony tenderness about the joint lines.] Test Results: [CT scan of the brain without contrast showed nothing acute. X- rays of the left ribs and chest x-ray obtained showed no fractures and no acute disease process. Patient also had x-rays of the left wrist which showed no fractures] Emergency Department Course and Treatment: [Patient thinks she is had a tetanus shot within the last year and she will check with her primary care physician. Patient had the wounds dressed. She was given a left wrist splint.] Treatment Plan: [Patient to follow-up with primary care physician within next 5 to 7 days] Disposition: [Discharged home in stable condition] Impression: [Chemical fall Closed head injury Left wrist sprain Left chest contusion Skin abrasions] This note was generated with [employer] dictation software. It may contain incorrect words, spelling, and punctuation that were not noted in review of the chart prior to signing ED Disposition - Plan for ED Patient: Referrals: Alan Lassiter MD [Primary Care Provider] -
--- NOTE | 2019-06-17 12:41 | ED.DEP ---
ED Disposition - Plan for ED Patient: Instructions: FALL, Mechanical, HEAD INJURY, No Wake-Up (Adult), Chest Wall Contusion, Wrist Sprain Referrals: Alan Lassiter MD [Primary Care Provider] - 3-5 Days
[2019-06-17 12:56] VITALS: PULSE 66; RESP 18; O2SAT 98
== END 2019-06-17 13:00 | disposition home or self-care (01) ==
PROVIDERS: Emergency Provider Emergency Medicine; Family Provider Family Medicine; PCP Family Medicine
DX: S09.90XA Unspecified injury of head, initial encounter (principal); S63.502A Unspecified sprain of left wrist, initial encounter; S20.212A Contusion of left front wall of thorax, initial encounter; S80.211A Abrasion, right knee, initial encounter; S80.212A Abrasion, left knee, initial encounter; S60.512A Abrasion of left hand, initial encounter; W01.0XXA Fall on same level from slipping, tripping and stumbling without subsequent striking against object, initial encounter; Y93.9 Activity, unspecified; Y92.410 Unspecified street and highway as the place of occurrence of the external cause; Y99.9 Unspecified external cause status; E11.9 Type 2 diabetes mellitus without complications; I10 Essential (primary) hypertension; E78.00 Pure hypercholesterolemia, unspecified; Z79.84 Long term (current) use of oral hypoglycemic drugs; Z79.82 Long term (current) use of aspirin; Z79.899 Other long term (current) drug therapy
CPT/HCPCS: 70450; 71111; 73110; 99283

== ENCOUNTER 2019-09-04 17:37 | Emergency (ER) | payer MEDICARE, OTHER, MEDICAID, SELFPAY ==
[2019-09-04 17:37] VITALS: BP 135/56; PULSE 69; RESP 15; TEMP 36.7; O2SAT 97; BMI 30.8
[2019-09-04] MEDS: Tetracaine 0.5% Ophthalmic Bottle 1 DRP EACH EYE (18:59)
[2019-09-04] MEDS: Fluorescein 1 MG STRIP 1 STRIP EACH EYE (19:00)
--- NOTE | 2019-09-04 19:20 | ED.DCSUM_ITS ---
History of Present Illness Chief Complaint: Eye Problem Informant: Patient Onset: Days Narrative: Patient presents with scratchy irritated feeling to her eyes bilaterally. She was seen by her practice professional on for a checkup. The following day she returned secondary to itchy sensation and scratchiness of her eyes. She presents to the ER today complaining of continued slight blurred vision. She also sees some floaters. She denies headache. When patient was at the practice professional office she was prescribed Zylet eyedrops. She is also been using some rewetting drops [id number]. - Past Medical History (1) COPD (chronic obstructive pulmonary disease) Status: Chronic (2) Diabetes mellitus Status: Chronic (3) HLD (hyperlipidemia) Status: Chronic (4) HTN (hypertension) Status: Chronic (5) History of appendectomy Status: Resolved (6) History of cholecystectomy Status: Resolved (7) History of hysterectomy Status: Resolved Past Medical History - Allergies and Home Meds Allergies/Adverse Reactions: Allergies No Known Allergies Allergy (Verified 09/04/19 17:42) Primary Care Physician: Alan Lassiter MD [Primary Care Provider] - Prior records reviewed: Yes Surgical History: appendectomy, hysterectomy, - Lives: With Family Smoking Status: Never smoker - Family History Paternal Family History: Family History (Last Reviewed 08/18/19 @ 10:49 by Ankita Weller) Father CAD (coronary artery disease) Mother Diabetes Sister Breast cancer Diabetes Heart disease Brother Heart disease Son Seizures Family History: Reports: Heart Disease - Heart disease diagnosed in late 70s., - - unspecified heart problems, diabetes in father Review of Systems General: Denies: Chills, Fever Eyes: Reports: Visual changes - bilaterally ENT: Denies: Bilateral ear pain, Rhinorrhea, Sore throat Cardiovascular: Denies: Chest pain Respiratory: Denies: Dyspnea Gastrointestinal: Denies: Abdominal pain Musculoskeletal: Denies: Neck pain Skin: Denies: Rash Neurological: Denies: Headache Physical Exam Vital Signs/Narrative: Vital Signs Temp Pulse Resp BP Pulse Ox 09/04/19 17:37 98.1 F 69 15 135/56 H 97 Inital Vital Signs reviewed: Yes General: Well nourished, Well developed Head: Normocephalic Eyes: Perrl, EOMI, - - No conjunctival injection ENT: Moist mucous membranes Neck: Supple Cardiovascular: Regular rate, Regular rhythm Respiratory: No distress Abdomen: Soft Extremities: Nontender Skin: Normal color Neurological: Alert, Oriented x3 Psychological: Normal affect Diagnostic/Tx/Re-eval - Medical Decision Making Tetracaine was applied to each eye which did seem to resolve her symptoms temporarily. Slit-lamp examination is performed. No ulcerations or lesions are noted. Fluorescein dye is applied bilaterally with no uptake noted. I spoke with the patient's practice professional, Dr. Tabor. He advised the patient can use her rewetting or lubricating drops tonight and he will see the patient at 8 AM tomorrow morning. ED Disposition - Plan for ED Patient: Disposition: Home or Assisted Living Diagnosis: Eye irritation Referrals: Alan Lassiter MD [Primary Care Provider] - Additional Instructions: Dr Tabor would like to see you at 8am tomorow morning for a repeat exam.
[2019-09-04 19:37] VITALS: PULSE 84; RESP 18
--- NOTE | 2019-09-04 19:37 | ED.RN ---
THIS NURSE REVIEWED D/C INSTRUCTIONS WITH PT. PT VERBALIZED UNDERSTANDING OF INSTRUCTIONS. PT DENIES FURTHER NEEDS OR QUESTIONS AT THIS TIME. PT AMBULATES FROM ROOM ON OWN WITHOUT ASSISTANCE FROM STAFF
== END 2019-09-04 19:38 | disposition home or self-care (01) ==
LOC: ED 19:32
PROVIDERS: Emergency Provider Emergency Medicine; PCP Family Medicine
DX: H57.89 Other specified disorders of eye and adnexa (principal); I10 Essential (primary) hypertension; J44.9 Chronic obstructive pulmonary disease, unspecified; E11.9 Type 2 diabetes mellitus without complications; E78.5 Hyperlipidemia, unspecified; Z79.82 Long term (current) use of aspirin; Z79.84 Long term (current) use of oral hypoglycemic drugs
CPT/HCPCS: 99282

== ENCOUNTER 2020-03-07 00:58 | Emergency (ER) | payer MEDICARE, OTHER, MEDICAID, SELFPAY ==
[2020-03-07 00:59] VITALS: BP 136/69; PULSE 56; RESP 18; TEMP 37.2; O2SAT 97; BMI 30.5
--- NOTE | 2020-03-07 02:25 | ED.DCSUM_ITS ---
History of Present Illness Chief Complaint: Rash Informant: Patient Onset: Days Context: Gradual Onset Timing: Continuous Narrative: Patient is a 74-year-old female presenting with itchy rash. Patient first noticed it a couple days ago on her left leg. It is now spread to her abdomen, right neck and left arm. Patient states no one else at home is has similar rash. She denies any known history of any bug bites. She denies having any pets. She denies any new detergents. She is currently on Keflex because she had a cyst removed from top of her head. She not sure if this is related. She denies any associated chest pain, shortness of breath or difficulty breathing. She denies any nausea or vomiting. She never had a reaction like this before. No other complaints at this time. Past Medical History - Allergies and Home Meds Allergies/Adverse Reactions: Allergies No Known Allergies Allergy (Verified 03/07/20 01:03) Primary Care Physician: Alan Lassiter MD [Primary Care Provider] - Surgical History: appendectomy, hysterectomy, - Smoking Status: Never smoker - Family History Paternal Family History: Family History (Last Reviewed 08/18/19 @ 10:49 by Ankita Weller) Father CAD (coronary artery disease) Mother Diabetes Sister Breast cancer Diabetes Heart disease Brother Heart disease Son Seizures Family History: Reports: Heart Disease - Heart disease diagnosed in late 70s., - - unspecified heart problems, diabetes in father Review of Systems General: Denies: Chills, Fever, Sweats Eyes: Denies: Visual changes - bilaterally, Diplopia ENT: Denies: Rhinorrhea, Sore throat Cardiovascular: Denies: Chest pain, Palpitations Respiratory: Denies: Dyspnea, Cough, Dyspnea on exertion Gastrointestinal: Denies: Abdominal pain, Nausea, Vomiting, Diarrhea, Melena, Hematochezia Genitourinary: Denies: Dysuria, Hematuria, Frequency Musculoskeletal: Denies: Back pain, Extremity Pain Skin: Reports: Rash. Denies: Wounds Neurological: Denies: Headache, Weakness, Numbness Physical Exam Vital Signs/Narrative: Vital Signs Temp Pulse Resp BP Pulse Ox 03/07/20 00:59 98.9 F 56 L 18 136/69 H 97 Inital Vital Signs reviewed: Yes General: Well nourished, Well developed, No Acute Distress Head: Normocephalic, Atraumatic Eyes: Perrl, EOMI ENT: Moist mucous membranes, No rhinorrhea, - - Normal oropharynx and uvula Neck: Supple, Nontender Cardiovascular: Regular rate, Regular rhythm, No murmurs Respiratory: No distress, CTA bilaterally, Chest nontender. Negative for: Wheezing Abdomen: Soft, Nontender, Nondistended, Normal bowel sounds Back: Nontender, Normal Inspection Extremities: Nontender, No edema Skin: Normal color, Rash - Scattered raised, erythematous rash in a linear distribution on left lateral leg, left distal forearm, neck and center of abdomen. No associated petechia or vesicles. Is consistent with localized allergic reaction. No associated urticaria/hives Neurological: Alert, Oriented x3, Cranial nerves II-XII grossly intact, Normal Strength, Normal Sensation Psychological: Normal affect, Normal Mood Diagnostic/Tx/Re-eval - Medical Decision Making Patient is evaluated for worsening itchy rash. Rash to me looks like it is from bug bites. Patient denies any possibility of bug bites however. It looks like it is a localized allergic reaction from something and patient not having systemic symptoms. She started on hydrocortisone ointment and instructed to take Benadryl as needed. Patient was also recently started on Keflex empirically because she had a cyst removed from her scalp. The surgical site seems to be healing well with no signs of infection. Patient is counseled to stop taking the antibiotics in case this is the culprit however I have a very low suspicion that it is. Patient has no findings consistent with anaphylaxis. Patient is counseled on signs and symptoms requiring return to the emergency room. Patient verbalizes agreement and understand this plan. Patient discharged home in stable and improved condition. ED Disposition - Plan for ED Patient: Disposition: Home or Assisted Living Diagnosis: Allergic reaction, Bug bites Instructions: ED Insect Bite Prescriptions: Hydrocortisone 1% Crm [Hytone] 1 applic TOPICAL TID 7 Days #1 tube Transmission Status: Received by [id number] Referrals: Alan Lassiter MD [Primary Care Provider] - Additional Instructions: You may take Benadryl for itching and to help you sleep. I suspect these are bites of some kind however I am not sure what is causing it. It is okay if you stop your antibiotics in case this is a reaction to the antibiotics however I think this is unlikely. Please follow-up with your primary care doctor for recheck later this week.
== END 2020-03-07 03:03 | disposition home or self-care (01) ==
LOC: ED 02:51
PROVIDERS: Emergency Provider Emergency Medicine; PCP Family Medicine
DX: T78.40XA Allergy, unspecified, initial encounter (principal); S80.862A Insect bite (nonvenomous), left lower leg, initial encounter; S50.862A Insect bite (nonvenomous) of left forearm, initial encounter; S10.96XA Insect bite of unspecified part of neck, initial encounter; S30.861A Insect bite (nonvenomous) of abdominal wall, initial encounter; W57.XXXA Bitten or stung by nonvenomous insect and other nonvenomous arthropods, initial encounter
CPT/HCPCS: 99282

== ENCOUNTER → 2020-08-17 | Outpatient (CLI) | payer OTHER, MEDICARE, MEDICAID, SELFPAY ==
[2020-08-17 11:10] LABS: Absolute Lymphocyte Count 14.44 X10^3/uL (0.83-4.51); Absolute Neutrophil Count 4.1 X10^3/uL (2.0-7.7); Basophil# 0.09 X10^3/uL; Basophil% 0.4 % (0-1); Eosinophil# 0.41 X10^3/uL; Hematocrit 42.3 % (37-47); Hemoglobin 12.9 g/dL (12.0-15.0); Lymphocyte # 14.44 X10^3/ul (4.0); Lymphocyte % 71.4 % (19-41); Mean Corp Hgb Conc 30.5 g/dL (32-36); Mean Corpuscular Volume 85.3 fL (81-99); Mean Platelet Vol. 10.1 fl (6.2-12.0); Monocyte# 1.13 X10^3/uL; Monocyte% 5.6 % (0-10); NRBC Flagged by Analyzer 0 % (0-5); Neutrophil % 20.4 % (47-70); POSITIVE DIFFERENTIAL YES; POSITIVE MORPHOLOGY YES; Platelet Count 160 K/mm3 (150-450); RBC Distribution Width CV 15.1 % (11.6-14.6); RBC Distribution Width SD 47.3 fl (35.1-43.9); Red Blood Count 4.96 M/mm3 (4.2-5.4); White Blood Count 20.2 K/mm3 (4.4-11.0)
[2020-08-17 11:11] LABS: Differential Indicated SCAN CRITERIA MET
[2020-08-17 11:35] LABS: Anion Gap 2 (5-15); BUN 13 mg/dL (7-18); BUN/Creat Ratio 16.9 RATIO (10-20); Calcium,Total 9.4 mg/dL (8.5-10.1); Chloride 106 mmol/L (98-107); Cholesterol 175 mg/dL (200); Creatinine, Serum 0.77 mg/dL (0.55-1.02); EST Glomerular Filtration Rate 78 mL/min (>60); Est Glom Filt Rate - Afr Amer 94 mL/min (>60); Glucose 126 mg/dL (74-106); High Density Lipoprotein 40 mg/dL; Potassium 4.5 mmol/L (3.5-5.1); Sodium Level 139 mmol/L (136-145); Triglycerides 255 mg/dL; Very Low Density Lipoprotein 51 mg/dL (5-40)
[2020-08-17 11:36] LABS: Reactive Lymphocyte 1+
== END | disposition home or self-care (01) ==
PROVIDERS: Referring Provider Family Medicine
DX: I10 Essential (primary) hypertension (principal); J44.9 Chronic obstructive pulmonary disease, unspecified; E87.5 Hyperkalemia
CPT/HCPCS: 36415; 80048; 80061; 83036; 85025

== ENCOUNTER → 2020-11-02 | Outpatient (CLI) | payer OTHER, MEDICARE, MEDICAID, SELFPAY ==
[2020-11-02 10:32] LABS: Hemoglobin A1c 6.3 % (3.8-5.6)
[2020-11-02 10:49] LABS: ALB/GLOB Ratio 1.3 RATIO (0.9-2.4); AST(SGOT) 19 U/L (15-37); Alanine Aminotransfer ALT/SGPT 40 U/L (13-56); Albumin, Serum 3.8 g/dL (3.2-5.0); Alkaline Phosphatase 140 U/L (45-117); Anion Gap 4 (5-15); BUN 13 mg/dL (7-18); BUN/Creat Ratio 18.8 RATIO (10-20); Calcium,Total 9.1 mg/dL (8.5-10.1); Chloride 107 mmol/L (98-107); Creatinine, Serum 0.69 mg/dL (0.55-1.02); EST Glomerular Filtration Rate 88 mL/min (>60); Est Glom Filt Rate - Afr Amer 107 mL/min (>60); Globulin 2.9 g/dL (2.2-4.2); Glucose 122 mg/dL (74-106); Potassium 4.3 mmol/L (3.5-5.1); Protein, Total 6.7 g/dL (6.4-8.2); Sodium Level 140 mmol/L (136-145)
== END | disposition home or self-care (01) ==
DX: E11.9 Type 2 diabetes mellitus without complications (principal)
CPT/HCPCS: 36415; 80053; 83036

== ENCOUNTER → 2020-12-24 | Outpatient (CLI) | payer OTHER, MEDICARE, MEDICAID, SELFPAY ==
--- NOTE | 2020-12-24 12:30 | RAD_ITS ---
HISTORY: LOW BACK PAIN COMPARISON: Single view abdomen from October 18, 2013 FINDINGS: # of images incl. paperwork: 3 XR Spine Lumbar 2 or 3 Views: Gentle thoracolumbar levoscoliosis. Cholecystectomy clips. Lumbar vertebral bodies are normal in height, but do contain some Schmorl's node invaginations and inferior enthesophytes.. Lumbar disc spaces areare narrowed with endplate sclerosis at many levels. Most severe disease is perhaps at the L5-S1 level. No acute lumbar spine fracture or subluxation. Facet arthropathy in the lower lumbar spine, greatest at L4-L5 and L5-S1. Atherosclerosis within the abdominal aorta. RAD/Lumbar Spine 2 or 3 Views IMPRESSION: No acute lumbar spine fracture or subluxation. Multilevel degenerative disc disease. Facet arthropathy. Severe disease in the abdominal aorta without perceived aneurysm. at 0651 Reported and signed by: Anuj Reich MD Electronically Signed: Anuj Reich MD at 6:50 EDT Tel , Service support ,
[2020-12-24 12:44] LABS: Absolute Lymphocyte Count 7.39 X10^3/uL (0.83-4.51); Absolute Neutrophil Count 3.2 X10^3/uL (2.0-7.7); Basophil# 0.05 X10^3/uL; Basophil% 0.4 % (0-1); Eosinophil# 0.39 X10^3/uL; Eosinophils% 3.1 % (0-5); Hematocrit 38.5 % (37-47); Hemoglobin 11.7 g/dL (12.0-15.0); Lymphocyte # 7.39 X10^3/ul (0.83-4.51); Lymphocyte % 59.1 % (19-41); Mean Corp Hgb Conc 30.4 g/dL (32-36); Mean Corpuscular Hgb 26.1 pg (27.0-32.0); Mean Corpuscular Volume 85.7 fL (81-99); Mean Platelet Vol. 10.7 fl (6.2-12.0); Monocyte% 11.2 % (0-10); NRBC Flagged by Analyzer 0 % (0-5); Neutrophil # 3.23 X10^3/uL (2.7-7.7); Neutrophil % 25.9 % (47-70); POSITIVE DIFFERENTIAL YES; POSITIVE MORPHOLOGY YES; Platelet Count 162 K/mm3 (150-450); RBC Distribution Width CV 14.7 % (11.6-14.6); RBC Distribution Width SD 45.6 fl (35.1-43.9); Red Blood Count 4.49 M/mm3 (4.2-5.4); White Blood Count 12.5 K/mm3 (4.4-11.0)
[2020-12-24 12:54] LABS: Differential Indicated SCAN CRITERIA MET
[2020-12-24 13:08] LABS: Differential Comment SCANNED
[2020-12-24 13:09] LABS: Atypical Lymphocyte 1+ %; Reactive Lymphocyte 2+
== END | disposition home or self-care (01) ==
PROVIDERS: PCP Nurse Practitioner Adult Health; Referring Provider Nurse Practitioner Adult Health; Visit Provider Nurse Practitioner Adult Health
DX: M54.5 Low back pain (principal)
CPT/HCPCS: 36415; 72100; 85025

== ENCOUNTER → 2021-02-11 | Outpatient (CLI) | payer OTHER, MEDICARE, MEDICAID, SELFPAY ==
[2021-02-11 16:26] LABS: AST(SGOT) 17 U/L (15-37); Alanine Aminotransfer ALT/SGPT 32 U/L (13-56); Albumin, Serum 4.2 g/dL (3.2-5.0); Alkaline Phosphatase 111 U/L (45-117); Bilirubin, Direct 0.13 mg/dL (0.00-0.30); Globulin 2.7 g/dL (2.2-4.2); Protein, Total 6.9 g/dL (6.4-8.2); Thyroid Stim Hormone (TSH) 1.29 uIU/mL (0.358-3.74)
== END | disposition home or self-care (01) ==
PROVIDERS: PCP Nurse Practitioner Adult Health; Visit Provider Nurse Practitioner Adult Health
DX: E11.9 Type 2 diabetes mellitus without complications (principal); L65.8 Other specified nonscarring hair loss
CPT/HCPCS: 36415; 80076; 82043; 84443

== ENCOUNTER → 2021-02-13 | Outpatient (CLI) | payer OTHER, MEDICARE, MEDICAID, SELFPAY | END | disposition home or self-care (01) | PROVIDERS: PCP Nurse Practitioner Adult Health; Referring Provider Nurse Practitioner Adult Health; Visit Provider Nurse Practitioner Adult Health | DX: E11.9 Type 2 diabetes mellitus without complications (principal); L65.8 Other specified nonscarring hair loss | CPT/HCPCS: 82043 ==

== ENCOUNTER 2021-06-15 07:49 | Emergency (ER) | payer OTHER, MEDICARE, MEDICAID, SELFPAY ==
[2021-06-15 07:50] VITALS: BP 129/71; PULSE 86; RESP 16; TEMP 36.3; O2SAT 98; BMI 29.3
--- NOTE | 2021-06-15 08:21 | CT_ITS ---
STUDY: CT BRAIN WITHOUT CONTRAST REASON FOR EXAM: Female, 76 years old. dizziness RADIATION DOSAGE (If Supplied By Facility): CTDIvol = ( 44.99 ) mGy, DLP = ( 829.85 ) mGycm TECHNIQUE: Transaxial CT imaging of the brain was performed without administration of intravenous contrast material. Individualized dose optimization techniques were used for this CT. COMPARISON: 06/17/2019 FINDINGS: Normal soft tissue structures. Normal calvarium. There is mild cerebral atrophy with widening of the extra-axial spaces and ventricular dilatation. Normal white matter tracts of the cerebral hemispheres. Normal basal ganglia and thalami. Normal brainstem. Normal cerebellum. There is no intracranial hemorrhage. There are no findings of an acute ischemic infarction. Normal visualized paranasal sinuses. CT/Brain/Head without Contrast IMPRESSION: Chronic involutional changes of the brain. Electronically Signed: Amari Washington MD at 9:09 EST Tel , Service support ,
--- NOTE | 2021-06-15 08:22 | EKG12_ITS ---
Test Reason : NAUSEA Blood Pressure : / mmHG Vent. Rate : 060 BPM Atrial Rate : 060 BPM P-R Int : 160 ms QRS Dur : 090 ms QT Int : 444 ms P-R-T Axes : 025 -26 036 degrees QTc Int : 444 ms Normal sinus rhythm Nonspecific ST abnormality Abnormal ECG Confirmed by TIN NGUYEN, JUDSON ([id number]), photographic editor DAGO ALMEIDA ([id number]) on 06/17/2021 10:10:39 AM Referred By: TAHMINA Confirmed By:JUDSON CASTLE MD
--- NOTE | 2021-06-15 08:23 | EDS_ITS ---
HPI History of Present Illness Chief Complaint: Nausea/Vomiting Informant: patient Onset/Context/Timing Onset: Days (3) Timing: Intermittent Quality: off-balance Maximum Severity: Moderate (only present when walking) Worsened by: walking Relieved by: resting Associated Symptoms Associated Symptoms: n/v, right ear hearing changes Narrative Narrative: Patient states for the past 3 days she has felt off balance when walking. She describes as dizziness, but she has no symptoms in her head. No lightheadedness or feeling faint when she stands, no sensation of movement or spinning, but she does feel like she is going to fall when she is walking and feels like she staggers at times. Sometimes it makes her feel nauseated and she vomits. When she is not walking, she does not get nausea or vomiting. She tells triage she has abdominal pain, but on further questioning/discussion, it is nausea. She has no other pains. No chest discomfort or dyspnea, palpitations. No focal peripheral neurologic symptoms such as weakness or numbness. She states for the same amount of time the past 3 days, she has had occasional ringing and a whooshing sound in her right ear only. That is new. She denies any earache or discharge, no recent URI now or several weeks ago. No recent injury or trauma. 81 mg aspirin but takes no anticoagulants. [facility] Medical History (Updated 06/15/21 @ 09:[address] Mainor Crowley MD) Atypical chest pain COPD (chronic obstructive pulmonary disease) Diabetes mellitus HLD (hyperlipidemia) HTN (hypertension) Pneumonia Psychiatric disorder SOB (shortness of breath) Home Medications aspirin 81 mg PO DAILY@0800 07/15/15 [History Last Taken 01/26/19] omeprazole 20 mg PO DAILY PRN PRN 07/15/15 [History Last Taken Unknown] trazodone 50 mg PO QHS 07/15/15 [History Last Taken 01/26/19] acetaminophen 1,000 mg PO DAILY PRN PRN 01/27/19 [History Last Taken 01/27/19] metoprolol succinate 100 mg PO DAILY 01/27/19 [History Last Taken 01/26/19] tiotropium bromide 2 puff INHALATION DAILY 01/27/19 [History Last Taken 01/25/19] albuterol sulfate 2.5 mg INHALATION Q4H PRN 03/08/19 [History Last Taken Unknown] glipizide 5 mg tablet 5 mg PO DAILY 03/08/19 [History Last Taken Unknown] nabumetone 500 mg tablet 500 mg PO DAILY tab 03/08/19 [History Last Taken Unknown] atorvastatin 80 mg PO QHS 03/07/20 [History Last Taken Unknown] lisinopril 10 mg PO DAILY 03/07/20 [History Last Taken Unknown] sertraline 50 mg PO DAILY 03/07/20 [History Last Taken Unknown] meclizine 25 mg PO Q8H PRN PRN #20 tab 06/15/21 [Rx Last Taken Unknown] ondansetron 8 mg PO Q8H PRN PRN #20 tab 06/15/21 [Rx Last Taken Unknown] prochlorperazine maleate 10 mg PO Q6H PRN 06/15/21 [History Last Taken Unknown] Allergy/AdvReac Type Severity Reaction Status Date / Time No Known Allergies Allergy Verified 06/15/21 07:53 Family History Father CAD (coronary artery disease) Mother Diabetes Sister Breast cancer Diabetes Heart disease Brother Heart disease Son Seizures Surgical History History of appendectomy History of cholecystectomy History of hysterectomy Social History Smoking Status: Never smoker second hand exposure: No alcohol intake: never substance use type: does not use ROS ROS ED Constitutional Constitutional ED: Denies chills or fever(s) Eyes Eyes: Denies change in vision or diplopia ENT ENT ED: Reports as per HPI and other Details: Right ear tinnitus and hearing disturbance ; Denies hearing loss, rhinorrhea or sore throat Cardiovascular Cardiovascular: Denies chest pain or palpitations Respiratory/Chest Respiratory/Chest: Denies cough or dyspnea Gastrointestinal Gastrointestinal: Reports nausea and vomiting; Denies abdominal pain or diarrhea Genitourinary Genitourinary ED: Denies dysuria or hematuria Musculoskeletal Musculoskeletal: Denies back pain or neck pain Integumentary Denies abscess or rash Neurologic Neurologic: Reports as per HPI; Denies headache(s), paresthesias or weakness Psychiatric Psychiatric: Denies anxiety or suicidal thoughts EXAM Physical Exam Const Vital Signs: 06/15/21 07:50 06/15/21 08:00 06/15/21 08:27 Temperature 97.3 F L Temperature Source Temporal Pulse Rate 86 60 Respiratory Rate 16 15 Respiratory Pattern Normal Blood Pressure 129/71 H 114/67 Blood Pressure Mean 90 82 Pulse Ox 98 06/15/21 09:00 Temperature Temperature Source Pulse Rate 59 L Respiratory Rate 16 Respiratory Pattern Blood Pressure 114/67 Blood Pressure Mean 82 Pulse Ox Positive well nourished and well developed General Appearance ED: well developed and NAD HEENT Reports TM's normal bilaterally and moist mucous membranes normocephalic and atraumatic Eyes PERRL and EOMs intact bilaterally Neck full ROM and supple Resp normal respiratory effort and clear to auscultation bilaterally Cardio regular rate, regular rhythm and no murmurs GI non-tender and non-distended Auscultation: normoactive bowel sounds Palpation: soft Back/Spine no CVA tenderness General Back: other FROM Extremity normal to inspection General Extremety ED: Negative for edema, pulses abnormal or tenderness General Extremity: Negative for edema or pulses abnormal Neuro oriented x3, CN's II-XII intact bilaterally and no sensory deficits noted Neuro Narrative: [id number] and [id number] normal bilaterally. NIHSS 0. Patient walked to the room without gross ataxia. Sensorium / Orientation: awake and alert Motor Exam: strength 5/5 throughout Skin no rashes or lesions noted and no wounds MDM MDM MDM Narrative Medical decision making narrative: Work-up is negative including CT of the brain after 3 days of symptoms much less likely to be central vertigo in etiology. Furthermore, supporting peripheral vertigo as etiology of her symptoms, prior to treatment whenever she would move significantly in bed or I perform Donis- Hallpike, which gave her no stefan vertigo or nystagmus, she would feel bad and very nauseated temporarily until it completely resolved with rest. Also, after she passed bedside dysphagia screen and she was given oral meclizine, we got her up to ambulate her and she walked down the [place] and back and states that she feels basically normal with no dizziness or feeling off. Her white blood count is elevated at 17 this is nonspecific in context. She does not have symptoms of any other illness. She has had prior white blood counts that have been normal but also prior that have been higher than this. Advised to follow-up, prescribed meclizine to use as needed as well as Zofran to use as needed. All questions answered at the bedside and she is comfortable with that plan, given information for ENT if the vertigo does not resolve within a week. Lab Data Attestation: I reviewed the patient's lab results. Labs: Laboratory Results - last 24 hr 06/15/21 06/15/21 08:35 08:35 WBC 17.2 H RBC 4.85 Hgb 12.3 Hct 40.2 MCV 82.9 MCH 25.4 L MCHC 30.6 L RDW Std Deviation 47.7 H RDW Coeff of Ana 15.7 H Plt Count 111 L MPV 10.7 Immature Gran % (Auto) 0.300 Neut % (Auto) 15.0 L Lymph % (Auto) 73.3 H [place] % (Auto) 11.2 H Eos % (Auto) 0.1 Baso % (Auto) 0.1 Absolute Neuts (auto) 2.6 Absolute Lymphs (auto) 12.60 H Nucleated RBC % 0 Differential Comment SCANNED Reactive Lymphocytes 1+ Sodium 137 Potassium 3.8 Chloride 106 Carbon Dioxide 25.0 Anion Gap 6 BUN 18 Creatinine 0.85 Estim Creat Clear Calc 50.67 Est GFR (MDRD) Af Amer 84 Est GFR (MDRD) Non-Af 69 BUN/Creatinine Ratio 21.2 H Glucose 164 H Calcium 8.8 Troponin I High Sens 5 Radiography Diagnostic Testing: Clinical Impression(s) from Imaging Studies Brain CT 06/15/21 08:21 IMPRESSION: Chronic involutional changes of the brain. Electronically Signed: Amari Washington MD at 9:09 EST Tel , Service support , Discharge Plan Triage Chief Complaint: Nausea/Vomiting ED Provider: Mainor Crowley Dx/Rx/DC Orders Clinical Impression: Other peripheral vertigo, right ear Instructions: Inner Ear Balance, ED Vertigo, Unspecified Prescriptions: New meclizine [meclizine] 25 MG tablet 25 mg PO Q8H PRN PRN (Reason: Dizziness) Qty: 20 RF: 0 ondansetron [ondansetron] 4 MG tablet 8 mg PO Q8H PRN PRN (Reason: Nausea) Qty: 20 RF: 0 No Action albuterol sulfate 2.5 mg /3 mL (0.083 %) solution for nebulization 2.5 mg INHALATION Q4H PRN (Reason: Wheezing) RF: 0 glipizide 5 mg tablet 5 mg PO DAILY RF: 0 nabumetone 500 mg tablet 500 mg PO DAILY RF: 0 trazodone 50 MG tablet 50 mg PO QHS RF: 0 omeprazole 20 MG capsule 20 mg PO DAILY PRN PRN (Reason: gerd) RF: 0 aspirin 81 MG tablet,chewable 81 mg PO DAILY@0800 RF: 0 metoprolol succinate 100 MG tablet extended release 24 hr 100 mg PO DAILY RF: 0 acetaminophen 500 MG tablet 1,000 mg PO DAILY PRN PRN (Reason: Pain) RF: 0 tiotropium bromide 4 GM mist 2 puff inhalation DAILY RF: 0 lisinopril 10 MG tablet 10 mg PO DAILY RF: 0 sertraline 50 MG tablet 50 mg PO DAILY RF: 0 atorvastatin 40 MG tablet 80 mg PO QHS RF: 0 prochlorperazine maleate 10 mg tablet 10 mg PO Q6H PRN (Reason: Nausea) RF: 0 Primary Care Provider: Noemy Haque Referrals: Mac Foss MD [STAFF PHYSICIAN] - 3-5 Days if not improving Noemy Haque, [employer] [Primary Care Provider] - Disposition Disposition: Home, Self Care
[2021-06-15 08:27] VITALS: BP 114/67; PULSE 60; RESP 15
[2021-06-15] MEDS: Meclizine HCl 25 MG Tablet PO (08:35)
[2021-06-15] MEDS: Ondansetron 4 MG/2 ML Vial IV (08:38)
[2021-06-15 08:44] LABS: Absolute Neutrophil Count 2.6 X10^3/uL (2.0-7.7); Basophil# 0.02 X10^3/uL; Basophil% 0.1 % (0-1); Eosinophil# 0.01 X10^3/uL; Eosinophils% 0.1 % (0-5); Hematocrit 40.2 % (37-47); Hemoglobin 12.3 g/dL (12.0-15.0); Lymphocyte % 73.3 % (19-41); Mean Corp Hgb Conc 30.6 g/dL (32-36); Mean Corpuscular Hgb 25.4 pg (27.0-32.0); Mean Corpuscular Volume 82.9 fL (81-99); Mean Platelet Vol. 10.7 fl (6.2-12.0); Monocyte# 1.92 X10^3/uL; Monocyte% 11.2 % (0-10); NRBC Flagged by Analyzer 0 % (0-5); Neutrophil # 2.57 X10^3/uL (2.7-7.7); POSITIVE DIFFERENTIAL YES; POSITIVE MORPHOLOGY YES; Platelet Count 111 K/mm3 (150-450); RBC Distribution Width CV 15.7 % (11.6-14.6); RBC Distribution Width SD 47.7 fl (35.1-43.9); Red Blood Count 4.85 M/mm3 (4.2-5.4); White Blood Count 17.2 K/mm3 (4.4-11.0)
[2021-06-15 08:47] LABS: Differential Indicated SCAN CRITERIA MET
[2021-06-15 09:00] VITALS: BP 114/67; PULSE 59; RESP 16
[2021-06-15 09:01] LABS: Anion Gap 6 (5-15); BUN 18 mg/dL (7-18); BUN/Creat Ratio 21.2 RATIO (10-20); Calcium,Total 8.8 mg/dL (8.5-10.1); Chloride 106 mmol/L (98-107); Creatinine, Serum 0.85 mg/dL (0.55-1.02); EST Glomerular Filtration Rate 69 mL/min (>60); Est Glom Filt Rate - Afr Amer 84 mL/min (>60); Estimated Creatinine Clearance 50.67 ml/min; Glucose 164 mg/dL (74-106); Potassium 3.8 mmol/L (3.5-5.1); Sodium Level 137 mmol/L (136-145); Troponin-I HS 5 pg/mL (3.0-54.0)
[2021-06-15 09:18] LABS: Differential Comment SCANNED; Reactive Lymphocyte 1+
[2021-06-15 10:05] VITALS: BP 111/60; PULSE 61; RESP 16
[2021-06-18 09:19] LABS: Pathologist Review Reviewed
== END 2021-06-15 10:11 | disposition home or self-care (01) ==
PROVIDERS: Emergency Provider Emergency Medicine; PCP Nurse Practitioner Adult Health
DX: H81.399 Other peripheral vertigo, unspecified ear (principal); J44.9 Chronic obstructive pulmonary disease, unspecified; E78.5 Hyperlipidemia, unspecified; I10 Essential (primary) hypertension; E11.9 Type 2 diabetes mellitus without complications; Z79.82 Long term (current) use of aspirin; Z79.84 Long term (current) use of oral hypoglycemic drugs; Z79.899 Other long term (current) drug therapy
CPT/HCPCS: 70450; 80048; 84484; 85025; 93005; 96374; 99285; A4216; J2405

== ENCOUNTER → 2021-06-21 10:26 | Outpatient (CLI) | payer MEDICARE, OTHER, MEDICAID, SELFPAY ==
[2021-06-21 11:14] LABS: Absolute Lymphocyte Count 17.83 X10^3/uL (0.83-4.51); Absolute Neutrophil Count 2.7 X10^3/uL (2.0-7.7); Basophil# 0.07 X10^3/uL; Basophil% 0.3 % (0-1); Eosinophil# 0.21 X10^3/uL; Hematocrit 38.2 % (37-47); Hemoglobin 12.1 g/dL (12.0-15.0); Lymphocyte # 17.83 X10^3/ul (0.83-4.51); Lymphocyte % 83.4 % (19-41); Mean Corp Hgb Conc 31.7 g/dL (32-36); Mean Corpuscular Hgb 25.6 pg (27.0-32.0); Mean Corpuscular Volume 80.9 fL (81-99); Monocyte# 0.56 X10^3/uL; Monocyte% 2.6 % (0-10); NRBC Flagged by Analyzer 0 % (0-5); Neutrophil # 2.66 X10^3/uL (2.7-7.7); Neutrophil % 12.5 % (47-70); POSITIVE DIFFERENTIAL YES; POSITIVE MORPHOLOGY YES; Platelet Count 123 K/mm3 (150-450); RBC Distribution Width CV 15.6 % (11.6-14.6); Red Blood Count 4.72 M/mm3 (4.2-5.4); White Blood Count 21.4 K/mm3 (4.4-11.0)
[2021-06-21 11:15] LABS: Differential Indicated SCAN CRITERIA MET
[2021-06-21 11:34] LABS: Smudge Cells 1+
[2021-06-21 11:35] LABS: Pathologist Review May foll
[2021-06-21 11:46] LABS: ALB/GLOB Ratio 1.1 RATIO (0.9-2.4); AST(SGOT) 49 U/L (15-37); Alanine Aminotransfer ALT/SGPT 68 U/L (13-56); Albumin, Serum 3.4 g/dL (3.2-5.0); Alkaline Phosphatase 92 U/L (45-117); Anion Gap 8 (5-15); BUN 11 mg/dL (7-18); BUN/Creat Ratio 17.7 RATIO (10-20); Chloride 105 mmol/L (98-107); Creatinine, Serum 0.62 mg/dL (0.55-1.02); EST Glomerular Filtration Rate 99 mL/min (>60); Est Glom Filt Rate - Afr Amer 120 mL/min (>60); Globulin 3.2 g/dL (2.2-4.2); Glucose 122 mg/dL (74-106); Lipase 177 U/L (73-393); Potassium 3.5 mmol/L (3.5-5.1); Protein, Total 6.6 g/dL (6.4-8.2); Sodium Level 141 mmol/L (136-145)
== END ==
PROVIDERS: PCP Nurse Practitioner Adult Health; Visit Provider Nurse Practitioner Adult Health
DX: R11.2 Nausea with vomiting, unspecified (principal)
CPT/HCPCS: 36415; 80053; 83690; 85025

== ENCOUNTER 2021-07-27 09:51 | Emergency (ER) | payer OTHER, MEDICARE, MEDICAID, SELFPAY ==
[2021-07-27 09:52] VITALS: BP 136/101; PULSE 58; RESP 14; TEMP 36.3; O2SAT 97; BMI 27.8
--- NOTE | 2021-07-27 10:07 | CT_ITS ---
STUDY: CT CERVICAL SPINE WITHOUT CONTRAST REASON FOR EXAM: Female, 76 years old. Headache and neck pain after trauma RADIATION DOSAGE (If Supplied By Facility): CTDIvol = ( 21.49 ) mGy, DLP = ( 425.28 ) mGycm TECHNIQUE: High resolution transaxial imaging was performed without contrast material. Sagittal and coronal images were reconstructed. Individualized dose optimization techniques were used for this CT. COMPARISON: None FINDINGS: Normal craniovertebral junction. There are degenerative changes of the anterior atlantoaxial articulation. Normal odontoid process. There is straightening of the normal cervical lordosis. Normal vertebral bodies and posterior osseous elements. There is anatomic alignment of the cervical spine. No demonstrated fracture. Disc space narrowing noted throughout the cervical spine most pronounced at C4-5. No significant disc pathology but there is facet joint hypertrophy noted throughout the cervical spine. No central canal stenosis, bilateral foraminal narrowing noted throughout the C-spine. No suspicious bulky adenopathy or airway narrowing or deviation. Peripheral calcifications noted in the carotid artery bulbs. CT/Spine Cervical without Contras IMPRESSION: Multilevel degenerative changes, as described above. Electronically Signed: Jaun Martin MD at 10:48 EST , Service support ,
--- NOTE | 2021-07-27 10:07 | CT_ITS ---
STUDY: CT BRAIN WITHOUT CONTRAST REASON FOR EXAM: Female, 76 years old. Headache after trauma RADIATION DOSAGE (If Supplied By Facility): CTDIvol = ( 44.99 ) mGy, DLP = ( 796.11 ) mGycm TECHNIQUE: Transaxial CT imaging of the brain was performed without administration of intravenous contrast material. Individualized dose optimization techniques were used for this CT. COMPARISON: 06/15/2021 FINDINGS: Normal soft tissue structures. Normal calvarium. Normal size ventricles and extra-axial spaces for the patient''s age. Normal white matter tracts of the cerebral hemispheres. Normal basal ganglia and thalami. Normal brainstem. Normal cerebellum. There is no intracranial hemorrhage. There are no findings of an acute ischemic infarction. Normal visualized paranasal sinuses. CT/Brain/Head without Contrast IMPRESSION: Chronic involutional changes of the brain. No acute hemorrhage Electronically Signed: Jaun Martin MD at 10:42 EST , Service support ,
--- NOTE | 2021-07-27 10:09 | EDS_ITS ---
HPI History of Present Illness Chief Complaint: Head Injury Informant: patient Narrative Narrative: striking her head on the ground. She notes [id number] female states that yesterday she was coming off of a stepstool when she fell backwards right occipital pain and right periauricular pain. She also notes a pain in the left and posterior aspect of her neck with turning to the right. She denies any arm or leg symptoms. No loss of consciousness. She is not currently on any anticoagulants. No hearing or vision changes. [facility] Medical History (Updated 07/27/21 @ 10:[address] Timoteo Joaquin, ) Atypical chest pain COPD (chronic obstructive pulmonary disease) Diabetes mellitus HLD (hyperlipidemia) HTN (hypertension) Pneumonia Psychiatric disorder SOB (shortness of breath) Home Medications aspirin 81 mg PO DAILY@0800 07/15/15 [History Last Taken 01/26/19] omeprazole 20 mg PO DAILY PRN PRN 07/15/15 [History Last Taken Unknown] trazodone 50 mg PO QHS 07/15/15 [History Last Taken 01/26/19] acetaminophen 1,000 mg PO DAILY PRN PRN 01/27/19 [History Last Taken 01/27/19] metoprolol succinate 100 mg PO DAILY 01/27/19 [History Last Taken 01/26/19] tiotropium bromide 2 puff INHALATION DAILY 01/27/19 [History Last Taken 01/25/19] albuterol sulfate 2.5 mg INHALATION Q4H PRN 03/08/19 [History Last Taken Unknow n] glipizide 5 mg tablet 5 mg PO DAILY 03/08/19 [History Last Taken Unknown] nabumetone 500 mg tablet 500 mg PO DAILY tab 03/08/19 [History Last Taken Unknown] atorvastatin 80 mg PO QHS 03/07/20 [History Last Taken Unknown] lisinopril 10 mg PO DAILY 03/07/20 [History Last Taken Unknown] sertraline 50 mg PO DAILY 03/07/20 [History Last Taken Unknown] meclizine 25 mg PO Q8H PRN PRN #20 tab 06/15/21 [Rx Last Taken Unknown] ondansetron 8 mg PO Q8H PRN PRN #20 tab 06/15/21 [Rx Last Taken Unknown] prochlorperazine maleate 10 mg PO Q6H PRN 06/15/21 [History Last Taken Unknown] Allergy/AdvReac Type Severity Reaction Status Date / Time No Known Allergies Allergy Verified 07/27/21 09:55 Family History Father CAD (coronary artery disease) Mother Diabetes Sister Breast cancer Diabetes Heart disease Brother Heart disease Son Seizures Surgical History History of appendectomy History of cholecystectomy History of hysterectomy Social History Smoking Status: Never smoker second hand exposure: No alcohol intake: never substance use type: does not use ROS ROS ED Constitutional Constitutional ED: Denies chills or weight loss Eyes Eyes: Denies change in vision or diplopia ENT ENT ED: Denies ear pain, rhinorrhea or sore throat Cardiovascular Cardiovascular: Denies chest pain, orthopnea, palpitations or racing heartbeat Respiratory/Chest Respiratory/Chest: Denies cough, dyspnea or orthopnea Gastrointestinal Gastrointestinal: Denies abdominal pain, diarrhea, nausea or vomiting Genitourinary Genitourinary ED: Denies dysuria, hematuria or urinary frequency Musculoskeletal Musculoskeletal: Reports neck pain; Denies arthralgias or myalgias Integumentary Denies abscess or rash Neurologic Neurologic: Reports headache(s); Denies weakness Psychiatric Psychiatric: Denies anxiety, depression, suicidal ideation or suicidal thoughts Endocrine Endocrinology: Denies polydipsia, polyphagia or polyuria Allergic/Immunologic Allergic/Immunologic ED: Denies mouth swelling, tongue swelling or urticaria EXAM Physical Exam Const Vital Signs: 07/27/21 09:52 07/27/21 09:59 Temperature 97.4 F L Temperature Source Temporal Pulse Rate 58 L Respiratory Rate 14 Respiratory Effort Normal Non-Labored Blood Pressure 136/101 H Blood Pressure Mean 112 Pulse Ox 97 Oxygen Delivery Method Room Air Positive well nourished and well developed General Appearance ED: well developed HEENT Reports normocephalic, head/scalp atraumatic and moist mucous membranes HEENT Narrative: Small occipital hematoma trauma Eyes PERRL and EOMs intact bilaterally Neck full ROM, no lymphadenopathy, supple and no JVD Neck Narrative: Tender to palpation in the left posterior cervical musculature General: tenderness Resp normal respiratory effort and clear to auscultation bilaterally Cardio regular rate, regular rhythm and no murmurs GI normal to inspection, nondistended, normoactive bowel sounds and non-tender Palpation: soft Back/Spine no CVA tenderness and normal ROM Extremity normal to inspection and full ROM General Extremety ED: Negative for edema General Extremity: Negative for edema Neuro oriented x3 and CN's II-XII intact bilaterally Sensorium / Orientation: alert Motor Exam: strength 5/5 throughout Psych mental status grossly normal Mood & Affect: Negative for depressed or tearful Skin no rashes or lesions noted and no wounds MDM MDM MDM Narrative Medical decision making narrative: CT of the brain and cervical spine were negative. Patient will be discharged home with supportive care Tylenol Motrin for pain return if worsening or concerns Radiography Diagnostic Testing: Clinical Impression(s) from Imaging Studies Brain CT 07/27/21 10:07 IMPRESSION: Chronic involutional changes of the brain. No acute hemorrhage Electronically Signed: Jaun Martin MD at 10:42 EST , Service support , Cervical Spine CT 07/27/21 10:07 IMPRESSION: Multilevel degenerative changes, as described above. Electronically Signed: Jaun Martin MD at 10:48 EST , Service support , Discharge Plan Triage Chief Complaint: Head Injury ED Provider: Timoteo Joaquin Dx/Rx/DC Orders Clinical Impression: Head injury, Acute cervical myofascial strain Instructions: ED Head Injury (Adult), ED Neck Sprain or Strain Prescriptions: No Action albuterol sulfate 2.5 mg /3 mL (0.083 %) solution for nebulization 2.5 mg INHALATION Q4H PRN (Reason: Wheezing) RF: 0 glipizide 5 mg tablet 5 mg PO DAILY RF: 0 nabumetone 500 mg tablet 500 mg PO DAILY RF: 0 trazodone 50 MG tablet 50 mg PO QHS RF: 0 omeprazole 20 MG capsule 20 mg PO DAILY PRN PRN (Reason: gerd) RF: 0 aspirin 81 MG tablet,chewable 81 mg PO DAILY@0800 RF: 0 metoprolol succinate 100 MG tablet extended release 24 hr 100 mg PO DAILY RF: 0 acetaminophen 500 MG tablet 1,000 mg PO DAILY PRN PRN (Reason: Pain) RF: 0 tiotropium bromide 4 GM mist 2 puff inhalation DAILY RF: 0 lisinopril 10 MG tablet 10 mg PO DAILY RF: 0 sertraline 50 MG tablet 50 mg PO DAILY RF: 0 atorvastatin 40 MG tablet 80 mg PO QHS RF: 0 prochlorperazine maleate 10 mg tablet 10 mg PO Q6H PRN (Reason: Nausea) RF: 0 meclizine [meclizine] 25 MG tablet 25 mg PO Q8H PRN PRN (Reason: Dizziness) Qty: 20 RF: 0 ondansetron [ondansetron] 4 MG tablet 8 mg PO Q8H PRN PRN (Reason: Nausea) Qty: 20 RF: 0 Primary Care Provider: Noemy Haque Referrals: Noemy Haque, [employer] MANAGER-[employer] [Primary Care Provider] - As Needed Disposition Disposition: Home, Self Care
== END 2021-07-27 10:59 | disposition home or self-care (01) ==
LOC: ED 10:36
PROVIDERS: Emergency Provider Emergency Medicine; PCP Nurse Practitioner Adult Health; Visit Provider Emergency Medicine
DX: S00.03XA Contusion of scalp, initial encounter (principal); J44.9 Chronic obstructive pulmonary disease, unspecified; E11.9 Type 2 diabetes mellitus without complications; S16.1XXA Strain of muscle, fascia and tendon at neck level, initial encounter; W08.XXXA Fall from other furniture, initial encounter; Y93.01 Activity, walking, marching and hiking; Y99.8 Other external cause status; E78.5 Hyperlipidemia, unspecified; I10 Essential (primary) hypertension; Z79.82 Long term (current) use of aspirin; Z79.84 Long term (current) use of oral hypoglycemic drugs; Z79.899 Other long term (current) drug therapy
CPT/HCPCS: 70450; 72125; 99282

== ENCOUNTER 2022-03-23 11:57 | Emergency (ER) | payer MEDICARE, MEDICAID, SELFPAY ==
[2022-03-23 11:58] VITALS: BP 148/116; PULSE 76; RESP 16; TEMP 36.3; O2SAT 97; BMI 27.9
--- NOTE | 2022-03-23 13:07 | EDS_ITS ---
HPI History of Present Illness HPI Narrative: Patient presents with pain in her left leg that has been getting worse over the past 3 days. Patient describes it as aching. Patient denies any trauma or injury. Patient states it is worse with ambulation. Patient states it is also worse with certain movements. Patient denies any paresthesias or weakness. Patient states it is mainly over the medial aspect of the left knee. Patient states that it does go into the distal thigh as well as the proximal lower leg. Patient denies any redness or swelling. Patient denies any fevers or chills. Patient is concerned over possible DVT. Chief Complaint: Lower Extremity Injury Informant: patient Onset/Context/Timing Onset: Days (3) Context: Sudden Onset Timing: Continuous Quality of Pain: Aching Location: Left knee Worsened by: Ambulation, certain movements Relieved by: Nothing Associated Symptoms Associated Symptoms: Negative for Parasthesia, Weakness or Loss of Funtion PFSH [facility] Medical History Atypical chest pain COPD (chronic obstructive pulmonary disease) Diabetes mellitus HLD (hyperlipidemia) HTN (hypertension) Pneumonia Psychiatric disorder SOB (shortness of breath) Home Medications aspirin 81 mg chewable tablet 81 mg PO DAILY@0800 07/15/15 [History Last Taken 01/26/19] omeprazole 20 mg capsule,delayed release 20 mg PO DAILY PRN PRN gerd 07/15/15 [History Last Taken Unknown] trazodone 50 mg tablet 50 mg PO QHS 07/15/15 [History Last Taken 01/26/19] acetaminophen 500 mg tablet 1,000 mg PO DAILY PRN PRN Pain 01/27/19 [History Last Taken 01/27/19] metoprolol succinate 100 mg tablet,extended release 24 hr 100 mg PO DAILY heart 01/27/19 [History Last Taken 01/26/19] tiotropium bromide 2.5 mcg/actuation mist for inhalation 2 puff inhalation DAILY daily 01/27/19 [History Last Taken 01/25/19] albuterol sulfate 2.5 mg/3 mL (0.083 %) solution for nebulization 2.5 mg inhalation Q4H PRN Wheezing 03/08/19 [History Last Taken Unknown] glipizide 5 mg tablet 5 mg PO DAILY 03/08/19 [History Last Taken Unknown] nabumetone 500 mg tablet 500 mg PO DAILY 03/08/19 [History Last Taken Unknown] atorvastatin 40 mg tablet 80 mg PO QHS 03/07/20 [History Last Taken Unknown] lisinopril 10 mg tablet 10 mg PO DAILY 03/07/20 [History Last Taken Unknown] sertraline 50 mg tablet 50 mg PO DAILY 03/07/20 [History Last Taken Unknown] meclizine 25 mg tablet 25 mg PO Q8H PRN PRN Dizziness #20 tabs 06/15/21 [Rx Last Taken Unknown] ondansetron 4 mg disintegrating tablet 8 mg PO Q8H PRN PRN Nausea #20 tabs 06/15/21 [Rx Last Taken Unknown] prochlorperazine maleate 10 mg tablet 10 mg PO Q6H PRN Nausea 06/15/21 [History Last Taken Unknown] Allergy/AdvReac Type Severity Reaction Status Date / Time No Known Allergies Allergy Verified 03/23/22 11:57 Family History Father CAD (coronary artery disease) Mother Diabetes Sister Breast cancer Diabetes Heart disease Brother Heart disease Son Seizures Surgical History History of appendectomy History of cholecystectomy History of hysterectomy Social History Smoking Status: Never smoker second hand exposure: No alcohol intake: never substance use type: does not use ROS ROS ED Constitutional Constitutional ED: Denies chills or fever(s) Eyes Eyes: Denies blurry vision or change in vision ENT ENT ED: Denies rhinorrhea or sore throat Cardiovascular Cardiovascular: Denies chest pain or palpitations Respiratory/Chest Respiratory/Chest: Denies cough or dyspnea Gastrointestinal Gastrointestinal: Denies nausea or vomiting Genitourinary Genitourinary ED: Denies dysuria or hematuria Musculoskeletal Musculoskeletal: Denies back pain or neck pain Integumentary Denies abscess or rash Neurologic Neurologic: Denies headache(s) or weakness Allergic/Immunologic Allergic/Immunologic ED: Denies mouth swelling or urticaria EXAM Physical Exam Const Vital Signs: 03/23/22 11:58 Temperature 97.4 F L Temperature Source Temporal Pulse Rate 76 Respiratory Rate 16 Blood Pressure 148/116 H Blood Pressure Mean 126 Pulse Ox 97 Oxygen Delivery Method Room Air Positive well nourished and well developed General Appearance ED: well developed and NAD HEENT Reports moist mucous membranes Neck full ROM and supple Extremity Extremity Narrative: There is mild tenderness over the medial aspect of the left knee. There is also tenderness over the distal thigh and proximal lower leg medially. There is no erythema or warmth. There is no edema or ecchymosis. There is no obvious deformity noted. There is good range of motion of the left knee, left hip, and left ankle. Pedal pulses are equal bilaterally. Sensation was intact to light touch bilaterally in the lower extremities. Strength is 5/5 bilaterally in the lower extremity. Extensor mechanism is intact. Neuro oriented x3, CN's II-XII intact bilaterally and moves all extremities Sensorium / Orientation: alert Motor Exam: strength 5/5 throughout Psych mental status grossly normal MDM MDM MDM Narrative Medical decision making narrative: Venous duplex of the left lower extremity was ordered. However, this was unable to be performed today. Patient was given a dose of Lovenox here. Patient was given an order for an outpatient venous duplex to be done tomorrow. Patient was instructed return tomorrow for the venous duplex. Patient was instructed to follow-up with her primary care physician in 3 to 5 days for reevaluation. Patient understood and was agreeable with the plan. All questions were answered. Discharge Plan Triage Chief Complaint: Lower Extremity Injury ED Provider: Alfonzo Angeles Dx/Rx/DC Orders Clinical Impression: Left leg pain, HTN (hypertension) Instructions: ED Pain, Acute, Uncertain Cause Prescriptions: No Action albuterol sulfate 2.5 mg /3 mL (0.083 %) solution for nebulization 2.5 mg INHALATION Q4H PRN (Reason: Wheezing) glipizide 5 mg tablet 5 mg PO DAILY nabumetone 500 mg tablet 500 mg PO DAILY trazodone 50 MG tablet 50 mg PO QHS omeprazole 20 MG capsule 20 mg PO DAILY PRN PRN (Reason: gerd) aspirin 81 MG tablet,chewable 81 mg PO DAILY@0800 metoprolol succinate 100 MG tablet extended release 24 hr 100 mg PO DAILY acetaminophen 500 MG tablet 1,000 mg PO DAILY PRN PRN (Reason: Pain) tiotropium bromide 4 GM mist 2 puff inhalation DAILY Label Comments: Inhale 2 Puffs as instructed once daily. lisinopril 10 MG tablet 10 mg PO DAILY sertraline 50 MG tablet 50 mg PO DAILY atorvastatin 40 MG tablet 80 mg PO QHS prochlorperazine maleate 10 mg tablet 10 mg PO Q6H PRN (Reason: Nausea) Label Comments: TAKE 1 TABLET BY MOUTH EVERY 6 HOURS NEEDED meclizine [meclizine] 25 MG tablet 25 mg PO Q8H PRN PRN (Reason: Dizziness) Qty: 20 0RF ondansetron [ondansetron] 4 MG tablet 8 mg PO Q8H PRN PRN (Reason: Nausea) Qty: 20 0RF Other Ambulatory Orders: Venous Duplex US, Unilateral (Stat) Facility: [facility] - Location: [facility] Ordered By: Dr. Alfonzo Angeles Primary Care Provider: Noemy Haque Referrals: Noemy Haque, UI ENGINEER-C [Primary Care Provider] - 3-5 Days Disposition Disposition: Home, Self Care
[2022-03-23] MEDS: Enoxaparin 80 MG/0.8 ML Syringe SC (14:02)
== END 2022-03-23 14:21 | disposition home or self-care (01) ==
PROVIDERS: Emergency Provider Emergency Medicine; PCP Nurse Practitioner Adult Health; Visit Provider Emergency Medicine
DX: M79.605 Pain in left leg (principal); J44.9 Chronic obstructive pulmonary disease, unspecified; E11.9 Type 2 diabetes mellitus without complications; I10 Essential (primary) hypertension; E78.5 Hyperlipidemia, unspecified; Z79.82 Long term (current) use of aspirin; Z79.899 Other long term (current) drug therapy
CPT/HCPCS: 99282

== ENCOUNTER → 2022-03-24 | Outpatient (CLI) | payer MEDICARE, MEDICAID, SELFPAY ==
--- NOTE | 2022-03-24 12:38 | VDLE_ITS ---
Reason For Study: Pain RIGHT LEFT CFV is compressible, spontaneous, phasic, GSV is normal. competent and demonstrates normal CFV is compressible, spontaneous, phasic, augmentation. competent, and demonstrates normal Procedure augmentation. This is a venous duplex using B-mode, color FV is compressible, spontaneous, phasic, flow and spectral Doppler. competent and demonstrates normal Exam performed in department. augmentation. A preliminary report was called and/or faxed POP V is compressible, spontaneous, phasic, to Dr. Angeles. competent and demonstrates normal augmentation. T/P Trunk is compressible. PTV is compressible. LT PerV is compressible. VL/Venous Duplex US, Unilateral Interpretation Summary Deep veins of the left lower extremity are patent and compressible segmentally. There is no evidence of left lower extremity deep vein thrombosis. The left great saphenous vein michael ears patent and compressible segmentally. Ordering Physician: Alfonzo Angeles Referring Physician: [facility] Performed By: Rose Ontiveros RDCS, RVT
== END | disposition home or self-care (01) ==
LOC: CVS 12:37
PROVIDERS: Referring Provider Emergency Medicine; Visit Provider Emergency Medicine
DX: M79.662 Pain in left lower leg (principal)
CPT/HCPCS: 93971

== ENCOUNTER → 2022-06-18 | Outpatient (CLI) | payer MEDICARE, MEDICAID, OTHER, SELFPAY ==
--- NOTE | 2022-06-18 11:55 | RAD_ITS ---
STUDY: X-RAY - LEFT KNEE REASON FOR EXAM: Female, 77 years old. Pain following a fall. TECHNIQUE: 4 view(s) of the knee. COMPARISON: None. FINDINGS: Normal visualized distal femur. Normal visualized proximal tibia and fibula. Normal proximal tibiofibular articulation. Normal medial femorotibial compartment. Normal lateral femorotibial compartment. Normal patellofemoral articulation. The soft tissue structures are unremarkable. RAD/Knee 4 or More Views IMPRESSION: Normal x-ray examination of the knee. Electronically Signed: Artie Roberts MD at 15:41 EST ,
--- NOTE | 2022-06-18 11:55 | RAD_ITS ---
STUDY: X-RAY - PELVIS AND LEFT HIP REASON FOR EXAM: Female, 77 years old. FALL TECHNIQUE: 3 views of the pelvis and hip. COMPARISON: None. FINDINGS: There is a non-specific bowel gas pattern. Normal visualized soft tissue structures. Normal bilateral iliac wings, sacroiliac joints and visualized sacrum. Normal bilateral superior and inferior pubic rami. Normal pubic symphysis. Normal bilateral ischial tuberosities. Normal visualized femoral head. There is osteoarthritic spur formation of the acetabular rim. There is mild articular joint space narrowing of the hip. RAD/HIP, UNI W/ Pelvis 2-3 Views IMPRESSION: Mild degree of the joint space narrowing. Electronically Signed: Artie Roberts MD at 15:42 EST ,
== END | disposition home or self-care (01) ==
PROVIDERS: Referring Provider Nurse Practitioner Family; Visit Provider Nurse Practitioner Family
DX: M25.562 Pain in left knee (principal)
CPT/HCPCS: 73502; 73564

== ENCOUNTER 2022-07-15 13:18 | Emergency (ER) | payer MEDICARE, MEDICAID, SELFPAY ==
[2022-07-15 13:19] VITALS: BP 134/78; PULSE 78; RESP 16; TEMP 36.6; O2SAT 99; BMI 31.1
--- NOTE | 2022-07-15 14:20 | EDS_ITS ---
HPI History of Present Illness Chief Complaint: Upper Extremity Injury Narrative Narrative: 77-year-old female presenting for evaluation of left thumb pain. She states that she has had pain in the left thumb for about a year. She reinjured this a couple of weeks ago and states she was putting some firewood out by the log file and transient hypotension and injured her fingernail. She states that now it starting to turn black she looks she is pretty good she does have some. She sta sushil its tender when she bumps it on things. She is not having trouble moving her finger. [facility] Medical History Atypical chest pain COPD (chronic obstructive pulmonary disease) Diabetes mellitus HLD (hyperlipidemia) HTN (hypertension) Pneumonia Psychiatric disorder SOB (shortness of breath) Home Medications aspirin 81 mg chewable tablet 81 mg PO DAILY@0800 07/15/15 [History Last Taken 01/26/19] omeprazole 20 mg capsule,delayed release 20 mg PO DAILY PRN PRN gerd 07/15/15 [History Last Taken Unknown] trazodone 50 mg tablet 50 mg PO QHS 07/15/15 [History Last Taken 01/26/19] acetaminophen 500 mg tablet 1,000 mg PO DAILY PRN PRN Pain 01/27/19 [History Last Taken 01/27/19] metoprolol succinate 100 mg tablet,extended release 24 hr 100 mg PO DAILY heart 01/27/19 [History Last Taken 01/26/19] tiotropium bromide 2.5 mcg/actuation mist for inhalation 2 puff inhalation DAILY daily 01/27/19 [History Last Taken 01/25/19] albuterol sulfate 2.5 mg/3 mL (0.083 %) solution for nebulization 2.5 mg inhalation Q4H PRN Wheezing 03/08/19 [History Last Taken Unknown] glipizide 5 mg tablet 5 mg PO DAILY 03/08/19 [History Last Taken Unknown] nabumetone 500 mg tablet 500 mg PO DAILY 03/08/19 [History Last Taken Unknown] atorvastatin 40 mg tablet 80 mg PO QHS 03/07/20 [History Last Taken Unknown] lisinopril 10 mg tablet 10 mg PO DAILY 03/07/20 [History Last Taken Unknown] sertraline 50 mg tablet 50 mg PO DAILY 03/07/20 [History Last Taken Unknown] meclizine 25 mg tablet 25 mg PO Q8H PRN PRN Dizziness #20 tabs 06/15/21 [Rx Last Taken Unknown] ondansetron 4 mg disintegrating tablet 8 mg PO Q8H PRN PRN Nausea #20 tabs 06/15/21 [Rx Last Taken Unknown] prochlorperazine maleate 10 mg tablet 10 mg PO Q6H PRN Nausea 06/15/21 [History Last Taken Unknown] Allergy/AdvReac Type Severity Reaction Status Date / Time No Known Allergies Allergy Verified 07/15/22 13:19 Family History Father CAD (coronary artery disease) Mother Diabetes Sister Breast cancer Diabetes Heart disease Brother Heart disease Son Seizures Surgical History History of appendectomy History of cholecystectomy History of hysterectomy Social History Smoking Status: Never smoker second hand exposure: No alcohol intake: never substance use type: does not use ROS ROS ED Constitutional Constitutional ED: Denies chills, fever(s) or sweats Eyes Eyes: Denies blurry vision or change in vision ENT ENT ED: Denies ear pain or sore throat Cardiovascular Cardiovascular: Denies chest pain, palpitations or racing heartbeat Respiratory/Chest Respiratory/Chest: Denies cough, dyspnea or sputum Gastrointestinal Gastrointestinal: Denies abdominal pain, constipation, diarrhea, nausea or vomiting Genitourinary Genitourinary ED: Denies dysuria, hematuria or urinary frequency Musculoskeletal Musculoskeletal: Reports other Details: Left thumb pain ; Denies arthralgias, myalgias or neck pain Integumentary Denies abscess, Abrasions or rash Neurologic Neurologic: Denies headache(s), paresthesias or weakness Psychiatric Psychiatric: Denies anxiety, depression, suicidal ideation or suicidal thoughts Endocrine Endocrinology: Denies polydipsia or polyuria EXAM Physical Exam Const Vital Signs: 07/15/22 13:19 Temperature 97.8 F Temperature Source Temporal Pulse Rate 78 Respiratory Rate 16 Blood Pressure 134/78 H Blood Pressure Mean 96 Pulse Ox 99 Oxygen Delivery Method Room Air Positive well nourished General Appearance ED: NAD HEENT Reports moist mucous membranes normocephalic Resp normal respiratory effort Cardio regular rate and regular rhythm Neuro oriented x3 and CN's II-XII intact bilaterally Psych mental status grossly normal Skin Skin Narrative: Left thumbnail is black. Tender to palpation over the thumbnail. No deformities. Patient able to flex and extend her thumb without difficulty. MDM MDM MDM Narrative Medical decision making narrative: Patient presenting with left thumbnail injury. Its not black its been about 3 weeks. I counseled the patient this is likely going to fall off on its own. I do not think he needs to be removed currently. Patient counseled to follow-up with a PCP to ensure resolution. Impression: 1. Left thumbnail injury Lab Data Attestation: I reviewed the patient's lab results. Discharge Plan Triage Chief Complaint: Upper Extremity Injury ED Provider: Bishop Velazquez Dx/Rx/DC Orders Prescriptions: No Action albuterol sulfate 2.5 mg /3 mL (0.083 %) solution for nebulization 2.5 mg INHALATION Q4H PRN (Reason: Wheezing) glipizide 5 mg tablet 5 mg PO DAILY nabumetone 500 mg tablet 500 mg PO DAILY trazodone 50 MG tablet 50 mg PO QHS omeprazole 20 MG capsule 20 mg PO DAILY PRN PRN (Reason: gerd) aspirin 81 MG tablet,chewable 81 mg PO DAILY@0800 metoprolol succinate 100 MG tablet extended release 24 hr 100 mg PO DAILY acetaminophen 500 MG tablet 1,000 mg PO DAILY PRN PRN (Reason: Pain) tiotropium bromide 4 GM mist 2 puff inhalation DAILY Label Comments: Inhale 2 Puffs as instructed once daily. lisinopril 10 MG tablet 10 mg PO DAILY sertraline 50 MG tablet 50 mg PO DAILY atorvastatin 40 MG tablet 80 mg PO QHS prochlorperazine maleate 10 mg tablet 10 mg PO Q6H PRN (Reason: Nausea) Label Comments: TAKE 1 TABLET BY MOUTH EVERY 6 HOURS NEEDED meclizine [meclizine] 25 MG tablet 25 mg PO Q8H PRN PRN (Reason: Dizziness) Qty: 20 0RF ondansetron [ondansetron] 4 MG tablet 8 mg PO Q8H PRN PRN (Reason: Nausea) Qty: 20 0RF Primary Care Provider: [facility] [Primary Care Provider] -
[2022-07-15 14:35] VITALS: RESP 18
== END 2022-07-15 14:37 | disposition home or self-care (01) ==
LOC: ED 14:28
PROVIDERS: Emergency Provider Student in an Organized Health Care Education/Training Program; Visit Provider Student in an Organized Health Care Education/Training Program
DX: M79.645 Pain in left finger(s) (principal); J44.9 Chronic obstructive pulmonary disease, unspecified; E11.9 Type 2 diabetes mellitus without complications; E78.5 Hyperlipidemia, unspecified; I10 Essential (primary) hypertension
CPT/HCPCS: 99282

== ENCOUNTER → 2022-07-31 | Outpatient (CLI) | payer MEDICARE, MEDICAID, SELFPAY ==
--- NOTE | 2022-07-31 09:49 | RAD_ITS ---
STUDY: XR Shoulder Min 2 Views REASON FOR EXAM: Female, 77 years old. PAIN TECHNIQUE: XR Shoulder Min 2 Views LEFT COMPARISON: None. FINDINGS: Normal glenohumeral articulation. Normal acromioclavicular joint. Normal acromion. Normal humeral head and visualized proximal humerus. The soft tissue structures are unremarkable. Normal visualized pulmonary apex. RAD/Shoulder min 2 Views IMPRESSION: There are no acute findings of the shoulder. Electronically Signed: Juan C Beckwith MD at 17:33 EST ,
== END | disposition home or self-care (01) ==
PROVIDERS: Visit Provider Nurse Practitioner Family
DX: M25.512 Pain in left shoulder (principal)
CPT/HCPCS: 73030

== ENCOUNTER 2025-05-31 19:59 | Emergency (ER) | payer MEDICARE, MEDICAID, SELFPAY ==
[2025-05-31 19:59] VITALS: BP 159/110; PULSE 72; RESP 18; TEMP 36.4; O2SAT 97; BMI 29.7
[2025-05-31 20:17] VITALS: BP 164/77; PULSE 72; RESP 19; O2SAT 98
--- NOTE | 2025-05-31 20:29 | CM.ED ---
Social work SW knows patient from a community setting and patient's son, Drew, saw SW in the hallway. Drew requested SW go and provide support to patient. SW entered patient's room, introducing self and role at [facility]. Patient welcomed SW visit and immediately verbalized what occurred to bring patient in to [facility] ED tonight. SW used active listening and supportive presence. Patient denied further needs at this time. Kellen Watson, CIRCULAR [employer]W FILER, [employer]AND ACQUISITION SPECIALIST
--- NOTE | 2025-05-31 20:36 | RAD_ITS ---
PROCEDURE: PELVIS 1 OR 2 VIEWS; RIGHT FEMUR MIN 2 VIEWS 05/31/2025 REASON FOR EXAM: PAIN, FALL THURS, RIGHT HIP HURTS TECHNIQUE: Procedure Code: RADPEL; RADFEM Modality: DX Procedure: PELVIS 1 OR 2 VIEWS; FEMUR MIN 2 VIEWS LATERALITY: RIGHT COMPARISON: 06/18/2022 FINDINGS: No acute fracture or dislocation. Bilateral hip joints are intact with mild- moderate degenerative arthrosis. Normal bone mineralization. Grossly unremarkable soft tissues. RAD/Femur Min 2 Views IMPRESSION: No acute fracture or dislocation. Reading Location: [id number]
--- NOTE | 2025-05-31 20:36 | RAD_ITS ---
PROCEDURE: PELVIS 1 OR 2 VIEWS; RIGHT FEMUR MIN 2 VIEWS 05/31/2025 REASON FOR EXAM: PAIN, FALL THURS, RIGHT HIP HURTS TECHNIQUE: Procedure Code: RADPEL; RADFEM Modality: DX Procedure: PELVIS 1 OR 2 VIEWS; FEMUR MIN 2 VIEWS LATERALITY: RIGHT COMPARISON: 06/18/2022 FINDINGS: No acute fracture or dislocation. Bilateral hip joints are intact with mild- moderate degenerative arthrosis. Normal bone mineralization. Grossly unremarkable soft tissues. RAD/Pelvis 1 or 2 Views IMPRESSION: No acute fracture or dislocation. Reading Location: [id number]
[2025-05-31 21:22] VITALS: BP 140/79; PULSE 79; RESP 17; TEMP 36.4; O2SAT 100
--- NOTE | 2025-05-31 21:23 | ED.RN ---
Pt ambulated down velasquez without difficulty. Dr. Nation aware
--- NOTE | 2025-05-31 23:54 | EX.ED.GENINJ ---
HPI History of Present Illness Chief Complaint: Back Narrative Narrative: Patient is an 80-year-old female presenting to the emergency department for right hip pain. Patient has a past medical history of diabetes, COPD, hypertension and hyperlipidemia. Patient states that she was on a stepstool about 2 steps up in the bathroom when she fell backwards hitting her buttocks on the toilet. She denies hitting her head or any loss consciousness. She reports this happened on and she was seen at [place] ED after and had an x-ray of her left hip done. States that it was negative and she was discharged. She states she woke up this morning and had right hip pain. States intermittently over the past few days she has had a headache and back pain, neither are present on time of evaluation. Her only complaint here on arrival is right hip pain that will sometimes radiate down the lateral side of her thigh and her right side. She denies any difficulty ambulating. She is not on any oral anticoagulation. Denies any chest pain or shortness of breath. Denies any numbness or weakness in her legs. [facility] Medical History Psychiatric disorder Diabetes mellitus Atypical chest pain SOB (shortness of breath) Pneumonia HTN (hypertension) COPD (chronic obstructive pulmonary disease) HLD (hyperlipidemia) Home Medications ?Medication ?Instructions ?Recorded ?Last Taken ?Type aspirin 81 mg chewable tablet 81 mg PO DAILY@0800 07/15/15 01/26/19 History omeprazole 20 mg capsule,delayed 20 mg PO DAILY PRN PRN gerd 07/15/15 Unknown History release trazodone 50 mg tablet 50 mg PO QHS 07/15/15 01/26/19 History acetaminophen 500 mg tablet 1,000 mg PO DAILY PRN PRN Pain 01/27/19 01/27/19 History metoprolol succinate 100 mg 100 mg PO DAILY heart 01/27/19 01/26/19 History tablet,extended release 24 hr tiotropium bromide 2.5 2 puff inhalation DAILY daily 01/27/19 01/25/19 History mcg/actuation mist for inhalation albuterol sulfate 2.5 mg/3 mL 2.5 mg inhalation Q4H PRN Wheezing 03/08/19 Unknown History (0.083 %) solution for nebulization glipizide 5 mg tablet 5 mg PO DAILY 03/08/19 Unknown History nabumetone 500 mg tablet 500 mg PO DAILY 03/08/19 Unknown History atorvastatin 40 mg tablet 80 mg PO QHS 03/07/20 Unknown History lisinopril 10 mg tablet 10 mg PO DAILY 03/07/20 Unknown History sertraline 50 mg tablet 50 mg PO DAILY 03/07/20 Unknown History meclizine 25 mg tablet 25 mg PO Q8H PRN PRN Dizziness #20 06/15/21 Unknown Rx tabs ondansetron 4 mg disintegrating 8 mg (2 x 4 mg) PO Q8H PRN PRN 06/15/21 Unknown Rx tablet Nausea #20 tabs prochlorperazine maleate 10 mg 10 mg PO Q6H PRN Nausea 06/15/21 Unknown History tablet Allergy/AdvReac Type Severity Reaction Status Date / Time No Known Allergies Allergy Verified 05/31/25 19:59 Family History Father CAD (coronary artery disease) Mother Diabetes Sister Breast cancer Diabetes Heart disease Brother Heart disease Son Seizures Surgical History History of cholecystectomy History of hysterectomy History of appendectomy Social History Smoking Status: Never smoker second hand exposure: No alcohol intake: never substance use type: does not use ROS ROS ED ROS Narrative See HPI EXAM Physical Exam Narrative Exam Narrative: Vital signs: Reviewed General: Alert and oriented x 3. No acute distress HEENT: Head is normocephalic and atraumatic, sinuses nontender, pupils equal round and reactive. Nares are patent. Oropharynx and throat exams normal. Neck: Supple without lymphadenopathy nontender. No midline cervical spinal tenderness to palpation. No step-offs or deformities. Cardiovascular: Regular rate and rhythm, no murmurs. No rubs or gallops. Normal S1 and S2. Radial and DP/PT pulses are equal and symmetric throughout. Respiratory: Clear to auscultation bilaterally. No wheezes, rales, rhonchi Abdominal: Soft and nontender. Normal bowel sounds. No guarding or rebound. Nonsurgical abdomen Extremities: No midline thoracic or lumbar spinal tenderness to palpation. No step-offs or deformities. Hips are stable and nontender to palpation. Extremities are atraumatic and nontender to palpation with normal active range of motion. There is no erythema, ecchymosis or obvious deformities of extremities. Normal sensation. Skin: No rash or redness. Neurological: Cranial nerves II through XII are grossly intact. Normal strength and sensation. Normal cerebellar function The rest of the physical exam is unremarkable Const Vital Signs: 05/31/25 19:59 05/31/25 20:17 05/31/25 21:22 Temperature 97.6 F L Temperature Source Oral Pulse Rate 72 72 79 Respiratory Rate 18 19 H 17 Blood Pressure 159/110 H 164/77 H 140/79 H Blood Pressure Mean 126 106 99 Pulse Ox 97 98 100 Oxygen Delivery Method Room Air Room Air Room Air 05/31/25 21:22 Temperature 97.6 F L Temperature Source Pulse Rate 79 Respiratory Rate 17 Blood Pressure 140/79 H Blood Pressure Mean 99 Pulse Ox 100 Oxygen Delivery Method MDM MDM MDM Narrative Medical decision making narrative: Patient is an 80-year-old female presenting to the emergency department for right hip pain that started today after a fall on . Patient was seen and examined. Vitals are stable. Patient resting in bed comfortably in no acute distress. Patient did not hit her head and had no loss of consciousness. States that she intermittently has headaches and had one a few days ago but is unable to tell me any details about it states she does not have a headache at time of evaluation. The fall was also 1 week ago and she is neurologically intact, low likelihood for any intracranial bleed. Has no back pain on history or physical. Has no obvious deformity of her hip no tenderness to palpation however she is endorsing intermittent pain of her hip and given her age we will obtain a hip and femur x-ray. On review of the x-rays there is no obvious fracture or dislocation on my read. Radiology read in agreement. Patient updated on the negative imaging. Patient ambulated without difficulty. Patient discharged from the Emergency Department. I do not feel that the patient's evaluation reveals any acute reason for admission at this time. I instructed them to either follow-up with their primary care physician or promptly return to the Emergency Department for reevaluation should symptoms worsen or new symptoms develop. I explained what symptoms would indicate the need to return to the emergency department. Shared decision making was used. The patient voiced understanding of the treatment plan and is agreeable with it. Clinical impression Right hip pain Fall History & Record Review Discussion w/independent historian: Patient and Significant other Radiography X-Ray: Right Hip, Read by ED Physician, Normal and No Fracture Diagnostic Testing: Clinical Impression(s) from Imaging Studies Femur X-Ray 05/31/25 20:36 IMPRESSION: No acute fracture or dislocation. Reading Location: [facility] Pelvis X-Ray 05/31/25 20:36 IMPRESSION: No acute fracture or dislocation. Reading Location: [facility] Discharge Plan Triage Chief Complaint: Back ED Provider: Cammy Nation Dx/Rx/DC Orders Clinical Impression: Hip pain, right, Fall Instructions: ED Hip Contusion, ED Fall Prevention, ED RICE Prescriptions: No Action albuterol sulfate 2.5 mg /3 mL (0.083 %) solution for nebulization 2.5 mg INHALATION Q4H PRN (Reason: Wheezing) glipizide 5 mg tablet 5 mg PO DAILY nabumetone 500 mg tablet 500 mg PO DAILY trazodone 50 MG tablet 50 mg PO QHS omeprazole 20 MG capsule 20 mg PO DAILY PRN PRN (Reason: gerd) aspirin 81 MG tablet,chewable 81 mg PO DAILY@0800 metoprolol succinate 100 MG tablet extended release 24 hr 100 mg PO DAILY acetaminophen 500 MG tablet 1,000 mg PO DAILY PRN PRN (Reason: Pain) tiotropium bromide 4 GM mist 2 puff inhalation DAILY Patient Comments: Inhale 2 Puffs as instructed once daily. lisinopril 10 MG tablet 10 mg PO DAILY sertraline 50 MG tablet 50 mg PO DAILY atorvastatin 40 MG tablet 80 mg PO QHS prochlorperazine maleate 10 mg tablet 10 mg PO Q6H PRN (Reason: Nausea) Patient Comments: TAKE 1 TABLET BY MOUTH EVERY 6 HOURS NEEDED meclizine [meclizine] 25 MG tablet 25 mg PO Q8H PRN PRN (Reason: Dizziness) Qty: 20 0RF ondansetron [ondansetron] 4 MG tablet 8 mg PO Q8H PRN PRN (Reason: Nausea) Qty: 20 0RF Primary Care Provider: Cony Ambrose Referrals: Cony Ambrose, [Primary Care Provider, Family Practice] - As soon as possible Activity Restrictions/Additional Instructions: Please refer to the RICE therapy listed below. You can take Tylenol for pain control at home. Use your cane at home over the next few days to help prevent any further falls. Your evaluation in the Emergency Department did not reveal any acute reason for admission. However, I want to emphasize that you may be early in the course of a disease process or illness even if it is not present. For this reason you should follow-up within 24 hours for reevaluation with either your primary care physician or if necessary back here in the Emergency Department. You should return to the Emergency Department immediately if your symptoms worsen or new symptoms develop. Print Language: Gibraltarian Disposition Disposition: Home, Self Care Discharge Date/Time: 05/31/25 21:27
== END 2025-05-31 21:27 | disposition home or self-care (01) ==
PROVIDERS: Emergency Provider Student in an Organized Health Care Education/Training Program; PCP Family Medicine; Visit Provider Student in an Organized Health Care Education/Training Program
DX: M25.551 Pain in right hip (principal); J44.9 Chronic obstructive pulmonary disease, unspecified; E11.9 Type 2 diabetes mellitus without complications; E78.5 Hyperlipidemia, unspecified; I10 Essential (primary) hypertension; W08.XXXA Fall from other furniture, initial encounter; Y92.89 Other specified places as the place of occurrence of the external cause; Z79.82 Long term (current) use of aspirin; Z79.899 Other long term (current) drug therapy; Z79.84 Long term (current) use of oral hypoglycemic drugs; Z90.49 Acquired absence of other specified parts of digestive tract; Z90.710 Acquired absence of both cervix and uterus
CPT/HCPCS: 72170; 73552; 99282